=== PATIENT | male | born 1975 | race Caucasian/White ===

== ENCOUNTER 2018-07-02 11:44 | Inpatient (IN) ==
[2018-07-02] MEDS ORDERED: 0.9 % Sodium Chloride 1,000 ML IVC ONE (12:13)
--- NOTE | 2018-07-02 12:15 | Emergency Department Note ---
Disposition Referrals: Jesus Manuel Khan DO [Primary Care Provider] - Forms: ED Satisfaction Letter Extremity Problem HPI - General Chief complaint: ED Extremity Problem,Nontraumatic Stated complaint: Left Great Toe Ulcer Time Seen by Provider: 07/02/18 11:49 Source: patient Mode of arrival: ambulatory Limitations: no limitations Nursing Notes Reviewed: Yes Vital Signs Reviewed: Yes - History of Present Illness HPI Narrative: I have re-performed and reviewed the history documented by the medical student, and I confirm its accuracy except as noted below Pain Scale: 9 - Related Data Home Medications Medication Instructions Recorded Confirmed Atorvastatin Calcium [Lipitor] 20 mg PO HS 06/12/15 02/27/16 Canagliflozin [Invokana] 300 mg PO HS 06/12/15 02/27/16 Duloxetine HCl [Cymbalta] 60 mg PO DAILY 06/12/15 02/27/16 Levomefolate/B6/B12/Algal Oil 1 cap PO BID 06/12/15 02/27/16 [Metanx Capsule] Lisinopril 30 mg PO DAILY 06/12/15 02/27/16 Metformin HCl [Glucophage] 1,000 mg PO BID 06/12/15 02/27/16 Multivitamin [Multi-Day Vitamins] 1 tab PO DAILY 06/12/15 02/27/16 Pioglitazone [Actos] 45 mg PO DAILY 06/12/15 02/27/16 Pregabalin [Lyrica] 150 mg PO DAILY 06/12/15 02/27/16 Saxagliptin HCl [Onglyza] 5 mg PO DAILY 06/12/15 02/27/16 Acetaminophen [Acetaminophen ER] 650 mg PO BID 02/27/16 02/27/16 Dulaglutide [Trulicity] 0.75 mg SQ QWEEK 02/27/16 02/27/16 Guaifenesin [Mucinex] 600 mg PO BID PRN 02/27/16 02/27/16 Melatonin/Pyridoxine HCl (B6) 5 mg PO HS PRN 02/27/16 02/27/16 [Melatonin 5 mg Tablet] Allergies Allergy/AdvReac Type Severity Reaction Status Date / Time liraglutide [From Victoza] Allergy See Verified 02/27/16 09:49 Comments sitagliptin [From Januvia] AdvReac Weakness Verified 04/06/15 10:29 Past Medical History - Past Medical History Medical history: Reports: coronary artery disease, CVA, diabetes, hypertension Surgical history: Reports: other Psychiatric history: Reports: no psych history - Social History Smoking Status: Never smoker Smokeless Tobacco Status: No Alcohol use: Reports: none Drug use: Reports: none Physical Exam - General Limitations: no limitations General appearance: alert, in no apparent distress - Head Head exam: atraumatic, normocephalic, normal inspection - Eye Eye exam: Present: normal appearance, PERRL, EOMI - ENT ENT exam: normal exam, normal oropharynx, mucous membranes moist - Neck Neck exam: Present: normal inspection, full ROM, trachea midline - Chest Chest inspection: Present: normal inspection, symmetric chest wall rise - Respiratory Respiratory exam: Present: normal lung sounds bilaterally - Cardiovascular Cardiovascular exam: Present: normal rhythm, tachycardia, normal heart sounds - Abdominal Exam Abdominal exam: Present: soft, Non-Tender. Absent: tenderness, distention, guarding, rebound, rigidity - Extremities Exam Extremities exam: Present: other (Erythema of the left great toe from tip to metatarsal joint 3 small ulcers near the medial aspect of the tip of the left great toe. medial ulcer approx 3x3mm tracks deep. No active pus drainage from these wounds. No sensation of entire foot (crhonic from diabetic neuropathy)) - Neurological Exam Neurological exam: Present: alert, oriented X3 - Psychiatric Psychiatric exam: Present: normal affect, normal mood - Skin Skin exam: Present: warm, dry Course Course Narrative: Patient was mildly tachycardic. Otherwise, the rest of vitals within normal limits. We will give the patient normal saline bolus. Left great toe concerning for possible osteomyelitis. I spoke with Dr. Canales who has requested CT of the left foot with IV contrast for further assessment. I also ordered basic blood work, CBC, BMP, ESR, CRP. Also ordered vancomycin and Zosyn for coverage of staph, strep and pseudomonas. Patient will need to be admitted for IV antibiotics for the left great toe infection. Vital Signs Temperature 98.7 F 07/02/18 11:51 Pulse Rate 104 07/02/18 11:51 Respiratory Rate 18 07/02/18 11:51 Blood Pressure 126/74 07/02/18 11:51 O2 Sat by Pulse Oximetry 94 07/02/18 11:51 Temperature 98.7 F 07/02/18 11:51 Pulse Rate 104 07/02/18 11:51 Respiratory Rate 18 07/02/18 11:51 Blood Pressure 126/74 07/02/18 11:51 O2 Sat by Pulse Oximetry 94 07/02/18 11:51 Oxygen Delivery Oxygen Delivery Room Air Extremity Problem, Nontraumati - Lab Data Result diagrams: 07/02/18 12:29 07/02/18 12:29 Lab Results 07/02/18 07/02/18 07/02/18 Range/Units 12:29 12:29 12:29 WBC 17.3 H (4.3-11.1) K/mcL RBC 4.76 (4.19-5.50) M/mcL Hgb 13.5 (12.9-16.9) g/dL Hct 41.1 (37.5-50.1) % MCV 86.3 (83.0-100.0) fL MCH 28.4 (28.0-33.3) pg MCHC 32.8 (31.6-35.5) g/dL RDW 14.1 (11.5-14.5) % Plt Count 186 (140-400) K/mcL MPV 9.9 (9.4-12.4) fL Immature Gran % 1.1 (0-4) % Seg Neutrophils % 79.1 % Lymphocytes % 11.5 % Monocytes % 7.2 % Eosinophils % 0.8 % Basophils % 0.3 % Neutrophils # 13.7 H (1.6-8.9) K/mcL Lymphocytes # 2.0 (0.6-4.6) K/mcL Monocytes # 1.3 (0.0-1.3) K/mcL Eosinophils # 0.1 (0.0-0.6) K/mcL Basophils # 0.1 (0.0-0.2) K/mcL ESR (0-10) mm/hr PT 12.6 H (9.4-12.1) Seconds INR 1.1 APTT 31.8 (26.0-36.0) Seconds Sodium 130 L (136-145) mEq/L Potassium 4.4 (3.5-5.1) mEq/L Chloride 94 L (98-107) mEq/L Carbon Dioxide 27 (23-29) mEq/L BUN 26 H (6-20) mg/dL Creatinine 1.40 H (0.70-1.30) mg/dL Est GFR ( Amer) > 60 (> 60) Est GFR (Non-Af Amer) 55 L (> 60) BUN/Creatinine Ratio 19 (6-26) Glucose 314 H (70-105) mg/dL Calculated Osmolality 287 (280-300) Lactic Acid (0.5-2.2) mmol/L Calcium 9.4 (8.6-10.3) mg/dL Phosphorus 2.8 (2.7-4.5) mg/dL Magnesium 2.0 (1.6-2.6) mg/dL 07/02/18 07/02/18 Range/Units 12:29 12:29 WBC (4.3-11.1) K/mcL RBC (4.19-5.50) M/mcL Hgb (12.9-16.9) g/dL Hct (37.5-50.1) % MCV (83.0-100.0) fL MCH (28.0-33.3) pg MCHC (31.6-35.5) g/dL RDW (11.5-14.5) % Plt Count (140-400) K/mcL MPV (9.4-12.4) fL Immature Gran % (0-4) % Seg Neutrophils % % Lymphocytes % % Monocytes % % Eosinophils % % Basophils % % Neutrophils # (1.6-8.9) K/mcL Lymphocytes # (0.6-4.6) K/mcL Monocytes # (0.0-1.3) K/mcL Eosinophils # (0.0-0.6) K/mcL Basophils # (0.0-0.2) K/mcL ESR 85 H (0-10) mm/hr PT (9.4-12.1) Seconds INR APTT (26.0-36.0) Seconds Sodium (136-145) mEq/L Potassium (3.5-5.1) mEq/L Chloride (98-107) mEq/L Carbon Dioxide (23-29) mEq/L BUN (6-20) mg/dL Creatinine (0.70-1.30) mg/dL Est GFR ( Amer) (> 60) Est GFR (Non-Af Amer) (> 60) BUN/Creatinine Ratio (6-26) Glucose (70-105) mg/dL Calculated Osmolality (280-300) Lactic Acid 1.1 (0.5-2.2) mmol/L Calcium (8.6-10.3) mg/dL Phosphorus (2.7-4.5) mg/dL Magnesium (1.6-2.6) mg/dL Attestation Statement - Attestation Attestation: I, Jones Goodrich DO, examined this patient [id number] and my medical decision-making was reviewed with Dr. Robel Dugan, Resident Physician. I agree with the documented findings, disposition and treatment plan as described except to the extent set forth below. I personally supervised and was present for the myers/critical portions of the procedures completed by the resident documented below. Please see my progress notes for details.
[2018-07-02] MEDS ORDERED: Piperacillin/Tazobactam 3.375 GM in 0.9 % Sodium Chloride Mini Bag 100 ML IVPB ONE (12:21)
--- NOTE | 2018-07-02 12:23 | Emergency Department Note ---
Disposition Clinical Impression: Toe infection, MANN (acute kidney injury) Cellulitis, toe Qualifiers: Laterality: left Qualified Code(s): L03.032 - Cellulitis of left toe Disposition: Admitted As Inpatient Condition: Good Referrals: Jesus Manuel Khan DO [Primary Care Provider] - Forms: ED Satisfaction Letter General Adult HPI - General Chief complaint: ED Extremity Problem,Nontraumatic Stated complaint: Left Great Toe Ulcer Time Seen by Provider: 07/02/18 11:49 Source: patient Mode of arrival: ambulatory Limitations: no limitations - History of Present Illness HPI Narrative: Pt is a 42 yo M with a h/o DM with previous diabetic foot ulcers and diabetic neuropathy. Pt c/o a left great to ulcer that has been present for the past month but states that 2 days ago he began having some throbbing in his left leg and left foot. Pt reports that he has had some associated subjective fever, chills and diaphoresis for the past 2 days as well and states that he has gone to [facility] yesterday for the pain in his leg and had a sono done and was told he did not have a DVT and was started on Doxycycline for the ulcer. He reports that he went to Dr. Canales office today and the nurse probed the wound and was told that the wound tracked down to the bone. He says that Dr. Webb's office also did an x-ray of his foot. The pt denies any nausea, vomiting, abd pain, CP, palpitations or any other sx at this time. Pain Scale: 9 - Related Data Home Medications Medication Instructions Recorded Confirmed Atorvastatin Calcium [Lipitor] 20 mg PO HS 06/12/15 02/27/16 Canagliflozin [Invokana] 300 mg PO HS 06/12/15 02/27/16 Duloxetine HCl [Cymbalta] 60 mg PO DAILY 06/12/15 02/27/16 Levomefolate/B6/B12/Algal Oil 1 cap PO BID 06/12/15 02/27/16 [Metanx Capsule] Lisinopril 30 mg PO DAILY 06/12/15 02/27/16 Metformin HCl [Glucophage] 1,000 mg PO BID 06/12/15 02/27/16 Multivitamin [Multi-Day Vitamins] 1 tab PO DAILY 06/12/15 02/27/16 Pioglitazone [Actos] 45 mg PO DAILY 06/12/15 02/27/16 Pregabalin [Lyrica] 150 mg PO DAILY 06/12/15 02/27/16 Saxagliptin HCl [Onglyza] 5 mg PO DAILY 06/12/15 02/27/16 Acetaminophen [Acetaminophen ER] 650 mg PO BID 02/27/16 02/27/16 Dulaglutide [Trulicity] 0.75 mg SQ QWEEK 02/27/16 02/27/16 Guaifenesin [Mucinex] 600 mg PO BID PRN 02/27/16 02/27/16 Melatonin/Pyridoxine HCl (B6) 5 mg PO HS PRN 02/27/16 02/27/16 [Melatonin 5 mg Tablet] Allergies Allergy/AdvReac Type Severity Reaction Status Date / Time liraglutide [From Victoza] Allergy See Verified 02/27/16 09:49 Comments sitagliptin [From Januvia] AdvReac Weakness Verified 04/06/15 10:29 All systems ED: reviewed and negative except as stated. Constitutional: Reports: fever, chills. Denies: weakness Cardiovascular: Denies: chest pain, palpitations Respiratory: Denies: cough, dyspnea Gastrointestinal: Denies: abdominal pain, nausea, vomiting Musculoskeletal: Reports: other (left leg pain) Integumentary: Reports: other (ulcer to the medial left great toe) Hematological/Lymphatic: Denies: easy bleeding, easy bruising Past Medical History - Past Medical History Medical history: Reports: coronary artery disease, CVA, diabetes, hypertension Surgical history: Reports: other Psychiatric history: Reports: no psych history - Social History Smoking Status: Never smoker Smokeless Tobacco Status: No Alcohol use: Reports: none Drug use: Reports: none Physical Exam - General Limitations: no limitations General appearance: alert, in no apparent distress Course Vital Signs Temperature 98.7 F 07/02/18 11:51 Pulse Rate 104 07/02/18 11:51 Respiratory Rate 18 07/02/18 11:51 Blood Pressure 126/74 07/02/18 11:51 O2 Sat by Pulse Oximetry 94 07/02/18 11:51 Temperature 98.7 F 07/02/18 11:51 Pulse Rate 104 07/02/18 11:51 Respiratory Rate 18 07/02/18 11:51 Blood Pressure 126/74 07/02/18 11:51 O2 Sat by Pulse Oximetry 94 07/02/18 11:51 Oxygen Delivery Oxygen Delivery Room Air Medical Decision Making - Lab Data Result diagrams: 07/02/18 12:29 07/02/18 12:29 Lab Results 07/02/18 07/02/18 07/02/18 Range/Units 12:29 12:29 12:29 WBC 17.3 H (4.3-11.1) K/mcL RBC 4.76 (4.19-5.50) M/mcL Hgb 13.5 (12.9-16.9) g/dL Hct 41.1 (37.5-50.1) % MCV 86.3 (83.0-100.0) fL MCH 28.4 (28.0-33.3) pg MCHC 32.8 (31.6-35.5) g/dL RDW 14.1 (11.5-14.5) % Plt Count 186 (140-400) K/mcL MPV 9.9 (9.4-12.4) fL Immature Gran % 1.1 (0-4) % Seg Neutrophils % 79.1 % Lymphocytes % 11.5 % Monocytes % 7.2 % Eosinophils % 0.8 % Basophils % 0.3 % Neutrophils # 13.7 H (1.6-8.9) K/mcL Lymphocytes # 2.0 (0.6-4.6) K/mcL Monocytes # 1.3 (0.0-1.3) K/mcL Eosinophils # 0.1 (0.0-0.6) K/mcL Basophils # 0.1 (0.0-0.2) K/mcL ESR (0-10) mm/hr PT 12.6 H (9.4-12.1) Seconds INR 1.1 APTT 31.8 (26.0-36.0) Seconds Sodium 130 L (136-145) mEq/L Potassium 4.4 (3.5-5.1) mEq/L Chloride 94 L (98-107) mEq/L Carbon Dioxide 27 (23-29) mEq/L BUN 26 H (6-20) mg/dL Creatinine 1.40 H (0.70-1.30) mg/dL Est GFR ( Amer) > 60 (> 60) Est GFR (Non-Af Amer) 55 L (> 60) BUN/Creatinine Ratio 19 (6-26) Glucose 314 H (70-105) mg/dL Calculated Osmolality 287 (280-300) Lactic Acid (0.5-2.2) mmol/L Calcium 9.4 (8.6-10.3) mg/dL Phosphorus 2.8 (2.7-4.5) mg/dL Magnesium 2.0 (1.6-2.6) mg/dL C-Reactive Protein 186 H (Less than 10) mg/L Urine Color (Yellow) Urine Clarity (Clear) Urine pH (5.0-8.0) pH Units Ur Specific [place] (1.010-1.025) Urine Protein (Neg-Trace) mg/dL Urine Glucose (UA) (Normal) mg/dL Urine Ketones (Negative) mg/dL Urine Blood (Negative) Urine Nitrite (Negative) Urine Bilirubin (Negative) Urine Urobilinogen (Normal) mg/dL Ur Leukocyte Esterase (Negative) Ur Culture Indicated? (NO) 07/02/18 07/02/18 07/02/18 Range/Units 12:29 12:29 14:13 WBC (4.3-11.1) K/mcL RBC (4.19-5.50) M/mcL Hgb (12.9-16.9) g/dL Hct (37.5-50.1) % MCV (83.0-100.0) fL MCH (28.0-33.3) pg MCHC (31.6-35.5) g/dL RDW (11.5-14.5) % Plt Count (140-400) K/mcL MPV (9.4-12.4) fL Immature Gran % (0-4) % Seg Neutrophils % % Lymphocytes % % Monocytes % % Eosinophils % % Basophils % % Neutrophils # (1.6-8.9) K/mcL Lymphocytes # (0.6-4.6) K/mcL Monocytes # (0.0-1.3) K/mcL Eosinophils # (0.0-0.6) K/mcL Basophils # (0.0-0.2) K/mcL ESR 85 H (0-10) mm/hr PT (9.4-12.1) Seconds INR APTT (26.0-36.0) Seconds Sodium (136-145) mEq/L Potassium (3.5-5.1) mEq/L Chloride (98-107) mEq/L Carbon Dioxide (23-29) mEq/L BUN (6-20) mg/dL Creatinine (0.70-1.30) mg/dL Est GFR ( Amer) (> 60) Est GFR (Non-Af Amer) (> 60) BUN/Creatinine Ratio (6-26) Glucose (70-105) mg/dL Calculated Osmolality (280-300) Lactic Acid 1.1 (0.5-2.2) mmol/L Calcium (8.6-10.3) mg/dL Phosphorus (2.7-4.5) mg/dL Magnesium (1.6-2.6) mg/dL C-Reactive Protein (Less than 10) mg/L Urine Color Yellow (Yellow) Urine Clarity Clear (Clear) Urine pH 6.0 (5.0-8.0) pH Units Ur Specific [place] > 1.030 H (1.010-1.025) Urine Protein Negative (Neg-Trace) mg/dL Urine Glucose (UA) >=1000 H (Normal) mg/dL Urine Ketones Negative (Negative) mg/dL Urine Blood Negative (Negative) Urine Nitrite Negative (Negative) Urine Bilirubin Negative (Negative) Urine Urobilinogen Normal (Normal) mg/dL Ur Leukocyte Esterase Negative (Negative) Ur Culture Indicated? NO (NO) Attestation Statement - Attestation Attestation: I, Jones Goodrich DO, examined this patient [id number] and my medical decision-making was reviewed with Robel HAMMER 3 I agree with the documen jeffery findings, disposition and treatment plan as described except to the extent set forth below. I personally supervised and was present for the myers/critical portions of the procedures completed by the resident documented below. Please see my progress notes for details.
[2018-07-02] MEDS ORDERED: Isovue-370 500 ML BOTTLE IVP ONE (12:26)
[2018-07-02 12:50] LABS: Basophils # 0.1 K/mcL (0.0-0.2); Basophils % 0.3 %; Eosinophils # 0.1 K/mcL (0.0-0.6); Eosinophils % 0.8 %; Hematocrit 41.1 % (37.5-50.1); Hemoglobin 13.5 g/dL (12.9-16.9); Immature Granulocytes % 1.1 % (0-4); Lymphocytes % 11.5 %; Mean Corpuscular HGB Conc 32.8 g/dL (31.6-35.5); Mean Corpuscular Hemoglobin 28.4 pg (28.0-33.3); Mean Corpuscular Volume 86.3 fL (83.0-100.0); Mean Platelet Volume 9.9 fL (9.4-12.4); Monocytes # 1.3 K/mcL (0.0-1.3); Monocytes % 7.2 %; Neutrophils # 13.7 K/mcL (1.6-8.9); Platelet Count 186 K/mcL (140-400); Red Blood Count 4.76 M/mcL (4.19-5.50); Red Cell Distribution Width 14.1 % (11.5-14.5); Segmented Neutrophils % 79.1 %
--- NOTE | 2018-07-02 12:53 | Emergency Department Note ---
Disposition Clinical Impression: Toe infection, MANN (acute kidney injury) Cellulitis, toe Qualifiers: Laterality: left Qualified Code(s): L03.032 - Cellulitis of left toe Disposition: Admitted As Inpatient Condition: Good Referrals: Jesus Manuel Khan DO [Primary Care Provider] - Forms: ED Satisfaction Letter Time of Disposition: 14:30 General Adult HPI - General Chief complaint: ED Extremity Problem,Nontraumatic Stated complaint: Left Great Toe Ulcer Time Seen by Provider: 07/02/18 11:49 Source: patient Mode of arrival: ambulatory Limitations: no limitations - History of Present Illness Pain Scale: 9 - Related Data Home Medications Medication Instructions Recorded Confirmed Atorvastatin Calcium [Lipitor] 20 mg PO HS 06/12/15 02/27/16 Canagliflozin [Invokana] 300 mg PO HS 06/12/15 02/27/16 Duloxetine HCl [Cymbalta] 60 mg PO DAILY 06/12/15 02/27/16 Levomefolate/B6/B12/Algal Oil 1 cap PO BID 06/12/15 02/27/16 [Metanx Capsule] Lisinopril 30 mg PO DAILY 06/12/15 02/27/16 Metformin HCl [Glucophage] 1,000 mg PO BID 06/12/15 02/27/16 Multivitamin [Multi-Day Vitamins] 1 tab PO DAILY 06/12/15 02/27/16 Pioglitazone [Actos] 45 mg PO DAILY 06/12/15 02/27/16 Pregabalin [Lyrica] 150 mg PO DAILY 06/12/15 02/27/16 Saxagliptin HCl [Onglyza] 5 mg PO DAILY 06/12/15 02/27/16 Acetaminophen [Acetaminophen ER] 650 mg PO BID 02/27/16 02/27/16 Dulaglutide [Trulicity] 0.75 mg SQ QWEEK 02/27/16 02/27/16 Guaifenesin [Mucinex] 600 mg PO BID PRN 02/27/16 02/27/16 Melatonin/Pyridoxine HCl (B6) 5 mg PO HS PRN 02/27/16 02/27/16 [Melatonin 5 mg Tablet] Allergies Allergy/AdvReac Type Severity Reaction Status Date / Time liraglutide [From Victoza] Allergy See Verified 02/27/16 09:49 Comments sitagliptin [From Januvia] AdvReac Weakness Verified 04/06/15 10:29 Constitutional: Reports: fever, chills. Denies: weakness Cardiovascular: Denies: chest pain, palpitations Respiratory: Denies: cough, dyspnea Gastrointestinal: Denies: abdominal pain, nausea, vomiting Musculoskeletal: Reports: other (left leg pain) Integumentary: Reports: other (ulcer to the medial left great toe) Hematological/Lymphatic: Denies: easy bleeding, easy bruising Past Medical History - Past Medical History Medical history: Reports: coronary artery disease, CVA, diabetes, hypertension Surgical history: Reports: other Psychiatric history: Reports: no psych history - Social History Smoking Status: Never smoker Smokeless Tobacco Status: No Alcohol use: Reports: none Drug use: Reports: none Physical Exam - General Limitations: no limitations General appearance: alert, in no apparent distress Course Vital Signs Temperature 98.7 F 07/02/18 11:51 Pulse Rate 104 07/02/18 11:51 Respiratory Rate 18 07/02/18 11:51 Blood Pressure 126/74 07/02/18 11:51 O2 Sat by Pulse Oximetry 94 07/02/18 11:51 Temperature 98.7 F 07/02/18 11:51 Pulse Rate 104 07/02/18 11:51 Respiratory Rate 18 07/02/18 11:51 Blood Pressure 126/74 07/02/18 11:51 O2 Sat by Pulse Oximetry 94 07/02/18 11:51 Oxygen Delivery Oxygen Delivery Room Air Medical Decision Making - Lab Data Result diagrams: 07/02/18 12:29 07/02/18 12:29 Lab Results 07/02/18 07/02/18 07/02/18 Range/Units 12:29 12:29 12:29 WBC 17.3 H (4.3-11.1) K/mcL RBC 4.76 (4.19-5.50) M/mcL Hgb 13.5 (12.9-16.9) g/dL Hct 41.1 (37.5-50.1) % MCV 86.3 (83.0-100.0) fL MCH 28.4 (28.0-33.3) pg MCHC 32.8 (31.6-35.5) g/dL RDW 14.1 (11.5-14.5) % Plt Count 186 (140-400) K/mcL MPV 9.9 (9.4-12.4) fL Immature Gran % 1.1 (0-4) % Seg Neutrophils % 79.1 % Lymphocytes % 11.5 % Monocytes % 7.2 % Eosinophils % 0.8 % Basophils % 0.3 % Neutrophils # 13.7 H (1.6-8.9) K/mcL Lymphocytes # 2.0 (0.6-4.6) K/mcL Monocytes # 1.3 (0.0-1.3) K/mcL Eosinophils # 0.1 (0.0-0.6) K/mcL Basophils # 0.1 (0.0-0.2) K/mcL ESR (0-10) mm/hr PT 12.6 H (9.4-12.1) Seconds INR 1.1 APTT 31.8 (26.0-36.0) Seconds Sodium 130 L (136-145) mEq/L Potassium 4.4 (3.5-5.1) mEq/L Chloride 94 L (98-107) mEq/L Carbon Dioxide 27 (23-29) mEq/L BUN 26 H (6-20) mg/dL Creatinine 1.40 H (0.70-1.30) mg/dL Est GFR ( Amer) > 60 (> 60) Est GFR (Non-Af Amer) 55 L (> 60) BUN/Creatinine Ratio 19 (6-26) Glucose 314 H (70-105) mg/dL Calculated Osmolality 287 (280-300) Lactic Acid (0.5-2.2) mmol/L Calcium 9.4 (8.6-10.3) mg/dL Phosphorus 2.8 (2.7-4.5) mg/dL Magnesium 2.0 (1.6-2.6) mg/dL C-Reactive Protein 186 H (Less than 10) mg/L Urine Color (Yellow) Urine Clarity (Clear) Urine pH (5.0-8.0) pH Units Ur Specific [place] (1.010-1.025) Urine Protein (Neg-Trace) mg/dL Urine Glucose (UA) (Normal) mg/dL Urine Ketones (Negative) mg/dL Urine Blood (Negative) Urine Nitrite (Negative) Urine Bilirubin (Negative) Urine Urobilinogen (Normal) mg/dL Ur Leukocyte Esterase (Negative) Ur Culture Indicated? (NO) 04/07/02/18 07/02/18 Range/Units 12:29 12:29 14:13 WBC (4.3-11.1) K/mcL RBC (4.19-5.50) M/mcL Hgb (12.9-16.9) g/dL Hct (37.5-50.1) % MCV (83.0-100.0) fL MCH (28.0-33.3) pg MCHC (31.6-35.5) g/dL RDW (11.5-14.5) % Plt Count (140-400) K/mcL MPV (9.4-12.4) fL Immature Gran % (0-4) % Seg Neutrophils % % Lymphocytes % % Monocytes % % Eosinophils % % Basophils % % Neutrophils # (1.6-8.9) K/mcL Lymphocytes # (0.6-4.6) K/mcL Monocytes # (0.0-1.3) K/mcL Eosinophils # (0.0-0.6) K/mcL Basophils # (0.0-0.2) K/mcL ESR 85 H (0-10) mm/hr PT (9.4-12.1) Seconds INR APTT (26.0-36.0) Seconds Sodium (136-145) mEq/L Potassium (3.5-5.1) mEq/L Chloride (98-107) mEq/L Carbon Dioxide (23-29) mEq/L BUN (6-20) mg/dL Creatinine (0.70-1.30) mg/dL Est GFR ( Amer) (> 60) Est GFR (Non-Af Amer) (> 60) BUN/Creatinine Ratio (6-26) Glucose (70-105) mg/dL Calculated Osmolality (280-300) Lactic Acid 1.1 (0.5-2.2) mmol/L Calcium (8.6-10.3) mg/dL Phosphorus (2.7-4.5) mg/dL Magnesium (1.6-2.6) mg/dL C-Reactive Protein (Less than 10) mg/L Urine Color Yellow (Yellow) Urine Clarity Clear (Clear) Urine pH 6.0 (5.0-8.0) pH Units Ur Specific [place] > 1.030 H (1.010-1.025) Urine Protein Negative (Neg-Trace) mg/dL Urine Glucose (UA) >=1000 H (Normal) mg/dL Urine Ketones Negative (Negative) mg/dL Urine Blood Negative (Negative) Urine Nitrite Negative (Negative) Urine Bilirubin Negative (Negative) Urine Urobilinogen Normal (Normal) mg/dL Ur Leukocyte Esterase Negative (Negative) Ur Culture Indicated? NO (NO) Attestation Statement - Attestation Attestation: I, Jones Goodrich DO, examined this patient [id number] and my medical decision-making was reviewed with Dr. Robel Dugan, Resident Physician. I agree with the documented findings, disposition and treatment plan as described except to the extent set forth below. I personally supervised and was present for the myers/critical portions of the procedures completed by the resident documented below. Please see my progress notes for details. 42-year-old male presents to the emergency room for evaluation of left elbow and flexion. He was seen in podiatry this morning and they advised him to come to the emergency room for IV antibiotics imaging modalities labs and admission. Patient is been treated for diabetic foot ulcer on the toe the last several weeks to months. He has had some fevers and chills as well as significant pain in left lower extremity that is all new. He denies any chest pain or shortness of breath. No nausea vomiting or diarrhea. No headache or vision change. He has not reinjured the foot or had any other particular surgical intervention on that extremity. On my physical exam the patient is resting in the bed. He does appear to be mildly uncomfortable at this time. Patient's lungs are clear heart is regular. He does have slight tachycardia on presentation. Abdomen is soft nontender nondistended with no guarding no rigidity. Right lower extremity is unaffected. He does have several areas of skin deterioration over the toes in the right hip otherwise no deep ulcers or involvement. Left great toe has ulcer noted with bony of visualization. Patient has redness. He also has discomfort to the foot in the calf. There is warmth noted to the area but no specific cellulitic-like presentation. Pulses in the DP and PT distribution are symmetrical. Patient will have labs and imaging completed at the request of the on-call brake engineer Dr. Canales. He will then be admitted once the workup is established. Patient is otherwise clinically stable. See detailed documentation the physical exam, medical intervention, medical decision-making and disposition in the resident physician's note. No critical care applied the patient's treatment course at this time. 1400 Patient found to have elevated white blood cell count but otherwise no other acute signs of profound systemic infection. Patient does meet sepsis criteria but does not show any signs of septic shock. Patient will be admitted for monitoring. Hospitalist Dr. Bassett reviewed the case and no other questions or concerns. Consultation for podiatry his artery been placed. Patient will be monitored here in the emergency department until the admission process has been completed.
[2018-07-02 12:55] LABS: INR 1.1; Prothrombin Time 12.6 Seconds (9.4-12.1)
[2018-07-02 12:57] LABS: Activated Partial Thrombo Time 31.8 Seconds (26.0-36.0)
[2018-07-02 13:01] LABS: BUN/Creatinine Ratio 19 (6-26); Blood Urea Nitrogen 26 mg/dL (6-20); Carbon Dioxide 27 mEq/L (23-29); Chloride 94 mEq/L (98-107); Glucose 314 mg/dL (70-105); Potassium 4.4 mEq/L (3.5-5.1); Sodium 130 mEq/L (136-145); eGFR For Non-African Americans 55 (> 60)
[2018-07-02 13:02] LABS: Calcium 9.4 mg/dL (8.6-10.3); Osmolality,Calculated 287 (280-300); Phosphorous 2.8 mg/dL (2.7-4.5)
[2018-07-02] MEDS ORDERED: *HR* FentaNYL (PF) 100 MCG/2 ML VIAL IVP ONE (14:08)
--- NOTE | 2018-07-02 14:10 | Emergency Department Note ---
Disposition Clinical Impression: Toe infection, MANN (acute kidney injury) Cellulitis, toe Qualifiers: Laterality: left Qualified Code(s): L03.032 - Cellulitis of left toe Disposition: Admitted As Inpatient Condition: Good Referrals: Jesus Manuel Khan DO [Primary Care Provider] - Forms: ED Satisfaction Letter Time of Disposition: 14:41 Extremity Problem HPI - General Chief complaint: ED Extremity Problem,Nontraumatic Stated complaint: Left Great Toe Ulcer Time Seen by Provider: 07/02/18 11:49 Source: patient Mode of arrival: ambulatory Limitations: no limitations Nursing Notes Reviewed: Yes Vital Signs Reviewed: Yes - History of Present Illness HPI Narrative: I have re-performed and reviewed the history documented by the medical student, and I confirm its accuracy except as noted below Pain Scale: 9 - Related Data Home Medications Medication Instructions Recorded Confirmed Atorvastatin Calcium [Lipitor] 20 mg PO HS 06/12/15 02/27/16 Canagliflozin [Invokana] 300 mg PO HS 06/12/15 02/27/16 Duloxetine HCl [Cymbalta] 60 mg PO DAILY 06/12/15 02/27/16 Levomefolate/B6/B12/Algal Oil 1 cap PO BID 06/12/15 02/27/16 [Metanx Capsule] Lisinopril 30 mg PO DAILY 06/12/15 02/27/16 Metformin HCl [Glucophage] 1,000 mg PO BID 06/12/15 02/27/16 Multivitamin [Multi-Day Vitamins] 1 tab PO DAILY 06/12/15 02/27/16 Pioglitazone [Actos] 45 mg PO DAILY 06/12/15 02/27/16 Pregabalin [Lyrica] 150 mg PO DAILY 06/12/15 02/27/16 Saxagliptin HCl [Onglyza] 5 mg PO DAILY 06/12/15 02/27/16 Acetaminophen [Acetaminophen ER] 650 mg PO BID 02/27/16 02/27/16 Dulaglutide [Trulicity] 0.75 mg SQ QWEEK 02/27/16 02/27/16 Guaifenesin [Mucinex] 600 mg PO BID PRN 02/27/16 02/27/16 Melatonin/Pyridoxine HCl (B6) 5 mg PO HS PRN 02/27/16 02/27/16 [Melatonin 5 mg Tablet] Allergies Allergy/AdvReac Type Severity Reaction Status Date / Time liraglutide [From Victoza] Allergy See Verified 02/27/16 09:49 Comments sitagliptin [From Januvia] AdvReac Weakness Verified 04/06/15 10:29 Constitutional: Reports: fever, chills. Denies: weakness Cardiovascular: Denies: chest pain, palpitations Respiratory: Denies: cough, dyspnea Gastrointestinal: Denies: abdominal pain, nausea, vomiting Musculoskeletal: Reports: other (left leg pain) Integumentary: Reports: other (ulcer to the medial left great toe) Hematological/Lymphatic: Denies: easy bleeding, easy bruising Past Medical History - Past Medical History Attestation: Yes The following information was validated with the patient. Source: patient Medical history: Reports: coronary artery disease, CVA, diabetes, hypertension Surgical history: Reports: other Psychiatric history: Reports: no psych history - Social History Smoking Status: Never smoker Smokeless Tobacco Status: No Alcohol use: Reports: none Drug use: Reports: none Physical Exam - General Limitations: no limitations General appearance: alert, in no apparent distress - Head Head exam: atraumatic, normocephalic, normal inspection - Eye Eye exam: Present: normal appearance, PERRL, EOMI - ENT ENT exam: normal exam, normal oropharynx, mucous membranes moist - Neck Neck exam: Present: normal inspection, full ROM, trachea midline - Chest Chest inspection: Present: normal inspection, symmetric chest wall rise - Respiratory Respiratory exam: Present: normal lung sounds bilaterally - Cardiovascular Cardiovascular exam: Present: normal rhythm, tachycardia, normal heart sounds - Abdominal Exam Abdominal exam: Present: soft, Non-Tender. Absent: tenderness, distention, guarding, rebound, rigidity - Extremities Exam Extremities exam: Present: other (Left great toe erythema, 3 small ulcers all less than 5 mm in diameter. No pus drainage. No sensation of entire left foot that is chronic for diabetic neuropathy. No bleeding. ) - Neurological Exam Neurological exam: Present: alert, oriented X3 - Psychiatric Psychiatric exam: Present: normal affect, normal mood - Skin Skin exam: Present: warm, dry, intact Course Course Narrative: Patient was tachycardic on presentation. Otherwise, the rest of vitals within normal limits. Physical exam shows concern for cellulitis of the left great toe. I talked with but I just Dr. King. He requested CT of the left foot with IV contrast for further assessment of nausea or abscess. Basic labs obtained. He has a white blood cell count elevation, elevated ESR. He also has signs of acute kidney injury. Patient is given fluids. He is also started on vancomycin and Zosyn empirically to cover staph and strep, Pseudomonas. Patient's blood pressure is within normal limits. Does not meet septic shock at this time. Foot CT shows signs of cellulitis but no signs of osteomyelitis. Patient was accepted for admission by hospitalist and consult to podiatry has been placed. Foot CT 07/02/18 12:26 IMPRESSION: 1. Soft tissue edema and skin thickening of the great toe most compatible with cellulitis. There also small amount of subcutaneous gas extending to and medial wound. Findings compatible with soft tissue infection. No organized drainable fluid collection identified. 2. No CT evidence for osteomyelitis. D/ / Misael Walker MD / Misael Walker MD Interpreting Provider: Misael Walker MD Vital Signs Temperature 98.7 F 07/02/18 11:51 Pulse Rate 104 07/02/18 11:51 Respiratory Rate 18 07/02/18 11:51 Blood Pressure 126/74 07/02/18 11:51 O2 Sat by Pulse Oximetry 94 07/02/18 11:51 Temperature 98.7 F 07/02/18 11:51 Pulse Rate 104 07/02/18 11:51 Respiratory Rate 18 07/02/18 11:51 Blood Pressure 126/74 07/02/18 11:51 O2 Sat by Pulse Oximetry 94 07/02/18 11:51 Oxygen Delivery Oxygen Delivery Room Air Extremity Problem, [facility] Narrative Medical decision making narrative: Patient was tachycardic on presentation. Otherwise, the rest of vitals within normal limits. Physical exam shows concern for cellulitis of the left great toe. I talked with but I just Dr. King. He requested CT of the left foot with IV contrast for further assessment of nausea or abscess. Basic labs obtained. He has a white blood cell count elevation, elevated ESR. He also has signs of acute kidney injury. Patient is given fluids. He is also started on vancomycin and Zosyn empirically to cover staph and strep, Pseudomonas. Patient's blood pressure is within normal limits. Does not meet septic shock at this time. Foot CT shows signs of cellulitis but no signs of osteomyelitis. Patient was accepted for admission by hospitalist and consult to podiatry has been placed. - Medical Records Medical records reviewed: Yes I reviewed the patient's medical records. - Lab Data Lab results reviewed: Yes I reviewed the patient's lab results. Result diagrams: 07/02/18 12:29 07/02/18 12:29 Lab Results 07/02/18 07/02/18 07/02/18 Range/Units 12:29 12:29 12:29 WBC 17.3 H (4.3-11.1) K/mcL RBC 4.76 (4.19-5.50) M/mcL Hgb 13.5 (12.9-16.9) g/dL Hct 41.1 (37.5-50.1) % MCV 86.3 (83.0-100.0) fL MCH 28.4 (28.0-33.3) pg MCHC 32.8 (31.6-35.5) g/dL RDW 14.1 (11.5-14.5) % Plt Count 186 (140-400) K/mcL MPV 9.9 (9.4-12.4) fL Immature Gran % 1.1 (0-4) % Seg Neutrophils % 79.1 % Lymphocytes % 11.5 % Monocytes % 7.2 % Eosinophils % 0.8 % Basophils % 0.3 % Neutrophils # 13.7 H (1.6-8.9) K/mcL Lymphocytes # 2.0 (0.6-4.6) K/mcL Monocytes # 1.3 (0.0-1.3) K/mcL Eosinophils # 0.1 (0.0-0.6) K/mcL Basophils # 0.1 (0.0-0.2) K/mcL ESR (0-10) mm/hr PT 12.6 H (9.4-12.1) Seconds INR 1.1 APTT 31.8 (26.0-36.0) Seconds Sodium 130 L (136-145) mEq/L Potassium 4.4 (3.5-5.1) mEq/L Chloride 94 L (98-107) mEq/L Carbon Dioxide 27 (23-29) mEq/L BUN 26 H (6-20) mg/dL Creatinine 1.40 H (0.70-1.30) mg/dL Est GFR ( Amer) > 60 (> 60) Est GFR (Non-Af Amer) 55 L (> 60) BUN/Creatinine Ratio 19 (6-26) Glucose 314 H (70-105) mg/dL Calculated Osmolality 287 (280-300) Lactic Acid (0.5-2.2) mmol/L Calcium 9.4 (8.6-10.3) mg/dL Phosphorus 2.8 (2.7-4.5) mg/dL Magnesium 2.0 (1.6-2.6) mg/dL C-Reactive Protein 186 H (Less than 10) mg/L Urine Color (Yellow) Urine Clarity (Clear) Urine pH (5.0-8.0) pH Units Ur Specific [place] (1.010-1.025) Urine Protein (Neg-Trace) mg/dL Urine Glucose (UA) (Normal) mg/dL Urine Ketones (Negative) mg/dL Urine Blood (Negative) Urine Nitrite (Negative) Urine Bilirubin (Negative) Urine Urobilinogen (Normal) mg/dL Ur Leukocyte Esterase (Negative) Ur Culture Indicated? (NO) 07/02/18 07/02/18 07/02/18 Range/Units 12:29 12:29 14:13 WBC (4.3-11.1) K/mcL RBC (4.19-5.50) M/mcL Hgb (12.9-16.9) g/dL Hct (37.5-50.1) % MCV (83.0-100.0) fL MCH (28.0-33.3) pg MCHC (31.6-35.5) g/dL RDW (11.5-14.5) % Plt Count (140-400) K/mcL MPV (9.4-12.4) fL Immature Gran % (0-4) % Seg Neutrophils % % Lymphocytes % % Monocytes % % Eosinophils % % Basophils % % Neutrophils # (1.6-8.9) K/mcL Lymphocytes # (0.6-4.6) K/mcL Monocytes # (0.0-1.3) K/mcL Eosinophils # (0.0-0.6) K/mcL Basophils # (0.0-0.2) K/mcL ESR 85 H (0-10) mm/hr PT (9.4-12.1) Seconds INR APTT (26.0-36.0) Seconds Sodium (136-145) mEq/L Potassium (3.5-5.1) mEq/L Chloride (98-107) mEq/L Carbon Dioxide (23-29) mEq/L BUN (6-20) mg/dL Creatinine (0.70-1.30) mg/dL Est GFR ( Amer) (> 60) Est GFR (Non-Af Amer) (> 60) BUN/Creatinine Ratio (6-26) Glucose (70-105) mg/dL Calculated Osmolality (280-300) Lactic Acid 1.1 (0.5-2.2) mmol/L Calcium (8.6-10.3) mg/dL Phosphorus (2.7-4.5) mg/dL Magnesium (1.6-2.6) mg/dL C-Reactive Protein (Less than 10) mg/L Urine Color Yellow (Yellow) Urine Clarity Clear (Clear) Urine pH 6.0 (5.0-8.0) pH Units Ur Specific [place] > 1.030 H (1.010-1.025) Urine Protein Negative (Neg-Trace) mg/dL Urine Glucose (UA) >=1000 H (Normal) mg/dL Urine Ketones Negative (Negative) mg/dL Urine Blood Negative (Negative) Urine Nitrite Negative (Negative) Urine Bilirubin Negative (Negative) Urine Urobilinogen Normal (Normal) mg/dL Ur Leukocyte Esterase Negative (Negative) Ur Culture Indicated? NO (NO) - Radiology Data Radiology results reviewed: Yes I reviewed the patient's radiology results. Foot CT 07/02/18 12:26 IMPRESSION: 1. Soft tissue edema and skin thickening of the great toe most compatible with cellulitis. There also small amount of subcutaneous gas extending to and medial wound. Findings compatible with soft tissue infection. No organized drainable fluid collection identified. 2. No CT evidence for osteomyelitis. D/ / Misael Walker MD / Misael Walker MD Interpreting Provider: Misael Walker MD S.B.A.R. - S.B.A.R. Situation: Demographics, MOA Background: Presenting Complaint, Relevant PMH, Meds, & Allergies Assessment: Vital Signs, Course and respsone to treatment, Exam Concerns, Patient/Family Expectation, Pertinant Lab Results Recommendation: Barrier(s) to disposition, Recommendation based on pending studies, treatments, or consults S.B.A.R. Report Given to: Dr. Martin Attestation Statement - Attestation Attestation: I, Jones Goodrich DO, examined this patient [id number] and my medical decision-making was reviewed with Dr. Robel Dugan, Resident Physician. I agree with the documented findings, disposition and treatment plan as described except to the extent set forth below. I personally supervised and was present for the myers/critical portions of the procedures completed by the resident documented below. Please see my progress notes for details.
[2018-07-02 14:11] LABS: C-Reactive Protein 186 mg/L (Less than 10)
[2018-07-02 14:24] LABS: Bilirubin,Urine Negative (Negative); Blood,Urine Negative (Negative); Clarity,Urine Clear (Clear); Color,Urine Yellow (Yellow); Glucose,Urine (UA) >=1000 mg/dL (Normal); Ketones,Urine Negative (Negative); Leukocyte Esterase,Urine Negative (Negative); Nitrite,Urine Negative (Negative); Protein,Urine Negative (Neg-Trace); Specific Gravity,Urine > 1.030 (1.010-1.025); Urobilinogen,Urine Normal (Normal)
--- NOTE | 2018-07-02 16:23 | Podiatry Consult Note ---
Date of Encounter: 07/02/18 Time of Encounter: 16:00 Assessment and Plan (1) Toe ulcer due to DM Current visit: No Status: Acute ASSESSMENT: [place] stage II ulceration to toe #1 left with probe to bone. PLAN: WBC 17, ESR 85 [address] CRP [address] obtained and reviewed and shows possible gas to distal aspect of toe #1 (sub q gas vs free air) Will obtain plain film xray imaging and vascular studies to further determine plan for patient - xray imagining to determine presence of gas vs free air Contacted reading radiologist of the CT scan and he confirms that noted gas on the CT scan is only limited to the toe and is not noted to extend to any other areas of the foot or leg. Will likely go for I&D of left great toe tomorrow with Discussed plan with patient and family Cleansed with saline, painted with betadine, 4x4 and kerlix applied. Admit for antibiotic coverage and pain management NPO after midnight. Qualifiers: Diabetes mellitus type: type 2 Laterality: left Non-pressure ulcer stage: with fat layer exposed Qualified Code(s): E11.621 - Type 2 diabetes mellitus with foot ulcer; L97.522 - Non-pressure chronic ulcer of other part of left foot with fat layer exposed (2) Cellulitis, toe Current visit: Yes Status: Acute Patient currently on vanc and zosyn- Continue antibiotics Wound cultures were obtained in office Blood cultures are pending. Qualifiers: Laterality: left Qualified Code(s): L03.032 - Cellulitis of left toe History of Present Illness HPI: Patient is alert and oriented presented to podiatry office with . Patient was seen and evaluated in office per PRISCILA Joy. After assessment of wound with noted probe to bone was found with subjective fevers and chills and pain to posterior aspect of foot and leg patient was advised to go to the ED. Patient presented today to ED with complaints of pain left lower extremity and swelling and redness to left great toe. Patient is a patient of Dr. Canales and is being treated for a chronic ulcer left toe with fat layer exposed. At his last appointment he was given a CAM boot to off load with ambulation and given supplies for alginate dressing changes daily. Patient and his report they have been completing the dressing changes and he admits that he occasionally will walk around the house without the CAM boot. They both state the toe looked as if it were healing until today. He reports the pain in his left lower leg started 2 days ago. He denies any falls or injury. He describes the pain as a throbbing pain starting from his knee and radiating down. The pain is constant and he rates it as a 9. He was evaluated yesterday at [facility] ER and dx with left leg pain and diabetic ulcer left great toe. He was started on Doxycycline 100 mg BID. Records were obtained and reviewed. WBC 15.8. Negative DVT study. Patient does report fever, unknown how high, chills, nausea, diarrhea, and fatigue. A1c 6.8 on 12/29/2017. Patient was admitted for IV administration and management of ulceration and cellulitis of left great toe. Past Med Surg Social Fam HX - Past Medical History Medical history: coronary artery disease, CVA, diabetes, hypertension Psychiatric history: no psych history - Past Surgical History Surgical History: other Additional surgical history: laser vision stim implant, spinal stimulator - Social History Smoking Status: Never smoker Smokeless Tobacco Status: No Alcohol use: none Drug use: none - Family History Father Family Member Ethnicity: Non- Living Status: Hx Family Cardiac Disorders: Yes Hx Family Respiratory Disorders: No Hx Family Cancer: Yes Hx Family GI Disorders: No Hx Family Endocrine Disorder: Yes Hx Family Neuromuscular Disorders: No Hx Family Neurologic Disorders: No Hx Family HEENT Disorders: No Hx Family Autoimmune Disorders: Yes Brother Living Status: Still Living Hx Family Medical Disorders: Yes (Clotting disorder) Medications and Allergies Atorvastatin Calcium [Lipitor] 20 mg PO HS 06/12/15 [History] Canagliflozin [Invokana] 300 mg PO DAILY 06/12/15 [History] Duloxetine HCl [Cymbalta] 60 mg PO DAILY 06/12/15 [History] Levomefolate/B6/B12/Algal Oil [Metanx Capsule] 1 cap PO BID 06/12/15 [History] Metformin HCl [Glucophage] 1,000 mg PO BID 06/12/15 [History] Pioglitazone [Actos] 45 mg PO DAILY 06/12/15 [History] Pregabalin [Lyrica] 150 mg PO TID 06/12/15 [History] RX: Lisinopril 40 mg PO DAILY 06/12/15 [History] Saxagliptin HCl [Onglyza] 5 mg PO DAILY 06/12/15 [History] Acetaminophen [Acetaminophen ER] 650 mg PO BID 02/27/16 [History] Dulaglutide [Trulicity] 1.5 mg SQ QWEEK 02/27/16 [History] Glimepiride [Amaryl] 4 mg PO DAILY 07/02/18 [History] RX: Doxycycline 100 mg PO BID 07/02/18 [History] traZODone [TraZODone] 50 mg PO HS PRN 07/02/18 [History] Allergy/AdvReac Type Severity Reaction Status Date / Time liraglutide [From Victoza] Allergy See Verified 02/27/16 09:49 Comments sitagliptin [From Januvia] AdvReac Weakness Verified 04/06/15 10:29 All Systems Reviewed: as per HPI Physical Exam - Constitutional Vitals: Temp Pulse Resp BP Pulse Ox 98.7 F 104 18 126/74 94 07/02/18 11:51 07/02/18 11:51 07/02/18 11:51 07/02/18 11:51 07/02/18 11:51 Exam: General Examination: CONSTITUTIONAL: Alert, oriented, in no acute distress, non-toxic. EXTREMITIES: CFT 3 seconds all toes. Edema +1 and pedal pulses palpable.there is noted pallor to distal/lateral aspect of left great toe. SKIN: Skin with decreased turgor, decreased subcutaneous tissue, skin thin and shiny with trophic changes associated with comorbidities as described in history.. NEUROLOGIC: profound diminished sensation to light and moderate touch of BLE related to known neuropathic changes ULCERATION: There is a noted ulceration to the medial distal aspect of the left great toe measuring 0.2cmx0.2cmx0.7cm which probes to the distal phalanx- there is no purulent drainage noted at this time however per podiatry office drainage was released after debridement of wound. There is slight darkening of the skin to the periwound which is concerning for tissue . Very minimally noted. There is a second ulceration noted to the plantar/ medial aspect of the left great toe measuring 0.2cmx0.2cmx0.2cm- this wound appears limited to breakdown of skin- probed wound to determine if wounds were connected however was unable to find connecting line. There is no drainage to wound to plantar aspect of toe. There is a 3rd lesion to the plantar aspect of the toe measuring 0.2cmx0.2cmx0.1cm and is limited to breakdown of the skin. No drainage. There is edema, erythema and warmth to entire left great toe. The erythema has been marked for monitoring. There is no extension of erythema past the MTP joint line at this time. There is no noted ascending cellulitis. There are no areas of induration or fluctuance noted at this time. There is no odor. Results - Labs Result Diagrams: 07/02/18 12:29 07/02/18 12:29 Labs: Abnormal lab results WBC 17.3 K/mcL (4.3-11.1) H 07/02/18 12:29 Neutrophils # 13.7 K/mcL (1.6-8.9) H 07/02/18 12:29 ESR 85 mm/hr (0-10) H 07/02/18 12:29 PT 12.6 Seconds (9.4-12.1) H 07/02/18 12:29 Sodium 130 mEq/L (136-145) L 07/02/18 12:29 Chloride 94 mEq/L (98-107) L 07/02/18 12:29 BUN 26 mg/dL (6-20) H 07/02/18 12:29 Creatinine 1.40 mg/dL (0.70-1.30) H 07/02/18 12:29 Est GFR (Non-Af Amer) 55 (> 60) L 07/02/18 12:29 Glucose 314 mg/dL (70-105) H 07/02/18 12:29 C-Reactive Protein 186 mg/L (Less than 10) H 07/02/18 12:29 Ur Specific [place] > 1.030 (1.010-1.025) H 07/02/18 14:13 Urine Glucose (UA) >=1000 mg/dL (Normal) H 07/02/18 14:13 H & H 07/02/18 Range/Units 12:29 Hgb 13.5 (12.9-16.9) g/dL Hct 41.1 (37.5-50.1) % All other labs normal. Consult Discharge Plan - Plan Referrals: Jesus Manuel Khan DO [Primary Care Provider] -
--- NOTE | 2018-07-02 17:50 | Electrocardiograph Report ---
[facility] Test Date: 2018-07-02 Pat Name: Geoff Richey Department: EXAM10 Room: 3A48 Gender: M Phlebotomy Lab Assistant: : [id number] Requested By: Robel Dugan Order Number: [id number] Reading MD: Manuel Lundy Measurements Intervals [place] Rate: 101 P: 52 CA: 191 QRS: -26 QRSD: 87 T: 48 QT: 344 QTc: 446 Interpretive Statements Sinus tachycardia Borderline left axis deviation Low voltage, precordial leads Abnormal R-wave progression, late transition ST elev, probable normal early repol pattern POOR R WAVE PROGRESSION Electronically Signed On 07-02-2018 17:48:27 EDT by Manuel Lundy
[2018-07-02] MEDS ORDERED: traZODone 50 MG TABLET PO PRN (19:09)
[2018-07-02] MEDS ORDERED: Naloxone 0.4 MG/ML INJ IVP PRN (19:13)
[2018-07-02] MEDS ORDERED: Dextrose Gel 15 GM/37.5 ML TUBE PO PRN ×2 (19:19)
[2018-07-02] MEDS ORDERED: D5% in Water 1,000 ML IVC PRN (19:19)
[2018-07-02] MEDS ORDERED: *HR* Dextrose 50 % in Water (Syg) 50 ML SYRINGE IVP PRN (19:19)
[2018-07-02] MEDS: Pregabalin 75 MG CAPSULE PO SCH (20:50)
[2018-07-02] MEDS ORDERED: Insulin DETEMIR 100 UNIT/ML X5UNITS SQ SCH (21:00)
[2018-07-02] MEDS ORDERED: *HR* OxyCODONE Immed Rel 5 MG TABLET PO ONE (21:43)
--- NOTE | 2018-07-02 22:05 | Internal Med History&Physical ---
Date of Encounter: 07/02/18 Time of Encounter: 19:00 Internal Medicine - H&P: HPI Chief complaint: DIABETIC ULCER OF LEFT GREAT TOE. Admitted From: Home Plans for Post Hospital Care: Home History of present illness: The patient is a 42-year-old male, who has had long-standing type 2 diabetes mellitus. He has been fighting with diabetic ulcer located at the dorsal portion of left great toe for about 1 month. Developed severe pain in that area in the last few days. Together with some swelling and purplish discoloration of the left great toe. There is no areas of drainage from that digit. He was seen by Dr. Canales, podiatry today. It was decided that he would come to the hospital for debridement and IV antibiotic treatment. PAST MEDICAL HX: He has had long-standing type 2 diabetes mellitus treated with multiple hypoglycemics (injections and tablets). He is also treated for hyperlipidemia. PAST FAMILY HX: See below PAST SOCIAL HX: He has never used tobacco. Denies alcohol and illicit drugs use. REVIEW OF SYSTEMS: All 14 organ systems were reviewed by me with the patient. Positive and pertinent negative findings are listed above. The rest of organ systems is negative. PHYSICAL EXAM: Skin: Free of rash and discoloration. There is a medium size ulcer located at the dorsal portion of left great toe. There is no discharge from the digit. The toe is purplish in color; swollen. Eyes: Sclera is white. There is no discharge from eyes. ENMT: Oral/pharyngeal mucosa is normal in appearance. There is no discharge from nose or ears. Respiratory: Normal breath sounds with no crackles and wheezes bilaterally. CV: Heart is regular with no gallop or murmur. GI: Abdomen is flat and soft with no palpable mass or visceromegaly. : There is no tenderness in patient's flanks bilaterally. Neuro exam: He has good strength in upper and lower extremities. He has normal eye movements. Psychiatric: He has normal affect. His thought process is appropriate to the situation. ADDITIONAL DATA: CT of left foot shows soft tissue edema and skin thickening of the great toe, most compatible with cellulitis. There is also a small amount of subcutaneous gas extending to medial wound. Findings are compatible with soft tissue infection. There is no organized drainable fluid collection identified. There is no CT evidence for osteomyelitis. CBC shows hemoglobin of 13.5 with WBC of 17.3 thousand. He has normal platelet count. BMP shows creatinine of 1.40 (GFR of 55). With normal electrolytes. With a glucose of 314. UA shows over 1000 of urine glucose. The rest is normal. A/P: Toe ulcer due to diabetes mellitus of type II. With cellulitis of left great toe. See notes from podiatry. I will continue IV vancomycin and IV Zosyn. He will get when necessary Roxicodone. To continue Cymbalta and Lyrica. The patient will likely have debridement tomorrow morning. Hyperlipidemia. We will continue statin. Past Med Surg Social Fam HX - Past Medical History Medical history: coronary artery disease, CVA, diabetes, hypertension Psychiatric history: no psych history - Past Surgical History Surgical History: other Additional surgical history: laser vision stim implant, spinal stimulator - Social History Smoking Status: Never smoker Smokeless Tobacco Status: No Alcohol use: none Drug use: none - Family History Father Family Member Ethnicity: Non- Living Status: Cause of : Cancer Hx Family Cardiac Disorders: Yes Hx Family Respiratory Disorders: No Hx Family Cancer: Yes (Colon, prostate) Hx Family GI Disorders: No Hx Family Endocrine Disorder: Yes Hx Family Neuromuscular Disorders: No Hx Family Neurologic Disorders: No Hx Family HEENT Disorders: No Hx Family Autoimmune Disorders: Yes Hx Family Medical Disorders: Yes (Clotting Disorder) Brother Living Status: Still Living Hx Family Medical Disorders: Yes (Clotting disorder) Internal Medicine - H&P: Meds Atorvastatin Calcium [Lipitor] 20 mg PO HS 06/12/15 [History] Canagliflozin [Invokana] 300 mg PO DAILY 06/12/15 [History] Duloxetine HCl [Cymbalta] 60 mg PO DAILY 06/12/15 [History] Levomefolate/B6/B12/Algal Oil [Metanx Capsule] 1 cap PO BID 06/12/15 [History] Lisinopril 40 mg PO DAILY 06/12/15 [History] Metformin HCl [Glucophage] 1,000 mg PO BID 06/12/15 [History] Pioglitazone [Actos] 45 mg PO DAILY 06/12/15 [History] Pregabalin [Lyrica] 150 mg PO TID 06/12/15 [History] Saxagliptin HCl [Onglyza] 5 mg PO DAILY 06/12/15 [History] Acetaminophen [Acetaminophen ER] 650 mg PO BID 02/27/16 [History] Dulaglutide [Trulicity] 1.5 mg SQ QWEEK 02/27/16 [History] Doxycycline 100 mg PO BID 07/02/18 [History] Glimepiride [Amaryl] 4 mg PO DAILY 07/02/18 [History] traZODone [TraZODone] 50 mg PO HS PRN 07/02/18 [History] Allergy/AdvReac Type Severity Reaction Status Date / Time liraglutide [From Victoza] Allergy See Verified 02/27/16 09:49 Comments sitagliptin [From Januvia] AdvReac Weakness Verified 04/06/15 10:29 - Constitutional Vitals: Temp Pulse Resp BP Pulse Ox 98.3 F 83 16 134/72 96 07/02/18 18:43 07/02/18 18:43 07/02/18 18:43 07/02/18 18:43 07/02/18 18:43 General appearance: Present: A&O X 3, no acute distress, answers questions appropriately Exam: xx Internal Med - H&P Results - Labs CBC & Chem 7: 07/02/18 12:29 07/02/18 12:29 Labs: Short CBC 07/02/18 Range/Units 12:29 WBC 17.3 H (4.3-11.1) K/mcL Hgb 13.5 (12.9-16.9) g/dL Hct 41.1 (37.5-50.1) % Plt Count 186 (140-400) K/mcL Neutrophils # 13.7 H (1.6-8.9) K/mcL BMP 07/02/18 12:29 Sodium 130 L Potassium 4.4 Chloride 94 L Carbon Dioxide 27 BUN 26 H Creatinine 1.40 H Glucose 314 H Calcium 9.4 Urine 07/02/18 Range/Units 14:13 Urine Color Yellow (Yellow) Urine Clarity Clear (Clear) Urine pH 6.0 (5.0-8.0) pH Units Ur Specific [place] > 1.030 H (1.010-1.025) Urine Protein Negative (Neg-Trace) mg/dL Urine Glucose (UA) >=1000 H (Normal) mg/dL - Impressions ITS Impressions Foot CT 07/02/18 12:26 IMPRESSION: 1. Soft tissue edema and skin thickening of the great toe most compatible with cellulitis. There also small amount of subcutaneous gas extending to and medial wound. Findings compatible with soft tissue infection. No organized drainable fluid collection identified. 2. No CT evidence for osteomyelitis. D/ / Misael Walker MD / Misael Walker MD Interpreting Provider: Misael Walker MD Foot X-Ray 07/02/18 16:26 IMPRESSION: Great toe soft tissue swelling with plantar surface ulceration. No soft tissue gas or bone destruction to suggest osteomyelitis. If there is ongoing concern for osteomyelitis recommend MRI with contrast. D/ / Reinier Suarez / Reinier Suarez Interpreting Provider: Reinier Suarez - Assessment and Plan (1) Toe ulcer due to DM Current Visit: No Status: Acute Qualifiers: Diabetes mellitus type: type 2 Laterality: left Non-pressure ulcer stage: with fat layer exposed Qualified Code(s): E11.621 - Type 2 diabetes mellitus with foot ulcer; L97.522 - Non-pressure chronic ulcer of other part of left foot with fat layer exposed (2) Cellulitis, toe Current Visit: Yes Status: Acute Qualifiers: Laterality: left Qualified Code(s): L03.032 - Cellulitis of left toe (3) HLD (hyperlipidemia) Current Visit: Yes Status: Acute Qualifiers: Hyperlipidemia type: unspecified Qualified Code(s): E78.5 - Hyperlipidemia, unspecified - Time Spent With Patient Total time spent is greater than 50% in coordination of care (as documented) at patient's floor/unit and/or counseling patient: 25 - 35 minutes
[2018-07-02] MEDS ORDERED: *HR* OxyCODONE Immed Rel 5 MG TABLET PO PRN (23:15)
[2018-07-03] MEDS: Piperacillin/Tazobactam 3.375 GM in 0.9 % Sodium Chloride Mini Bag 100 ML IVPB SCH ×3 (01:08→18:03)
[2018-07-03] MEDS: Insulin LISPRO 300 UNITS/3 ML VIAL SQ SCH ×5 (01:09→21:01)
[2018-07-03] MEDS ORDERED: Lisinopril 20 MG TABLET PO SCH (09:00)
[2018-07-03] MEDS: Pregabalin 75 MG CAPSULE PO SCH ×3 (09:12→21:28)
[2018-07-03] MEDS ORDERED: 0.9 % Sodium Chloride 1,000 ML IVC SCH (11:00)
--- NOTE | 2018-07-03 15:33 | Anesthesia Evaluation PreOp ---
Date of Encounter: 07/03/18 Time of Encounter: 15:30 - Past History Planned Operation: I & D Left Great Toe Cardiac History: HTN, Hyperlipidemia Pulmonary History: Denies Any Significant HX EMULSION COATER History: CVA (denies residual deficit), TIA Other Medical History: Diabetes Type II Anesthesia History: No Prior Anesthetic Complications, Past Anesthesia Alcohol Use: none Drug use: none Medications and Allergies Atorvastatin Calcium [Lipitor] 20 mg PO HS 06/12/15 [History] Canagliflozin [Invokana] 300 mg PO DAILY 06/12/15 [History] Duloxetine HCl [Cymbalta] 60 mg PO DAILY 06/12/15 [History] Levomefolate/B6/B12/Algal Oil [Metanx Capsule] 1 cap PO BID 06/12/15 [History] Lisinopril 40 mg PO DAILY 06/12/15 [History] Metformin HCl [Glucophage] 1,000 mg PO BID 06/12/15 [History] Pioglitazone [Actos] 45 mg PO DAILY 06/12/15 [History] Pregabalin [Lyrica] 150 mg PO TID 06/12/15 [History] Saxagliptin HCl [Onglyza] 5 mg PO DAILY 06/12/15 [History] Acetaminophen [Acetaminophen ER] 650 mg PO BID 02/27/16 [History] Dulaglutide [Trulicity] 1.5 mg SQ QWEEK 02/27/16 [History] Doxycycline 100 mg PO BID 07/02/18 [History] Glimepiride [Amaryl] 4 mg PO DAILY 07/02/18 [History] traZODone [TraZODone] 50 mg PO HS PRN 07/02/18 [History] Allergy/AdvReac Type Severity Reaction Status Date / Time liraglutide [From Victoza] Allergy See Verified 02/27/16 09:49 Comments sitagliptin [From Januvia] AdvReac Weakness Verified 04/06/15 10:29 - Meds/Allergy Pre-op Review Medications Reviewed: Yes Allergies Reviewed: Yes Beta Blockers on Current Med List: No Anesthesia Results - Labs 07/02/18 12:29 07/02/18 12:29 - Imaging EKG: report reviewed (07/02/2018 Sinus tachycardia Borderline left axis deviation Low voltage, precordial leads Abnormal R-wave progression, late transition ST elev, probable normal early repol pattern POOR R WAVE PROGRESSION) Anesthesia Exam Vital Signs/O2 Sat/Glucose, Most Recent Temp Pulse Resp BP Pulse Ox 97.9 F 87 16 122/69 95 07/03/18 14:22 07/03/18 14:22 07/03/18 14:22 07/03/18 14:22 07/03/18 14:22 Blood Glucose* 135 Height: 6'/1.83m Weight: 305 lbs/138 kg NPO (# of Hours): 8 Pain Scale: 0 Pain Scale Used: Numeric (1 - 10) - HEENT Pupil (Motor): EOMI Mallampati: III Teeth: Poor dentition Oral Opening: Greater than 3 - EMULSION COATER LOC: Oriented EMULSION COATER Motor: Normal RUE, Normal LUE, Normal RLE, Normal LLE, Normal Face EMULSION COATER Sensory: Normal: RUE, LUE, Face, Deficit: RLE, LLE - Cardiac Rhythm: Regular Murmur: None - Pulmonary Breath Sounds: bilateral Clear Respiratory Effort: Symmetrical Anesthesia Assess/Plan ASA Score: 3 Level of consciousness: Cooperative, Oriented, Tranquil Anesthetic Plan: MAC Monitoring Plan: Standard Monitors
[2018-07-03] MEDS ORDERED: Ropivicaine 0.25% 20 ml Syringe INTRAART ONE (17:15)
[2018-07-03] MEDS ORDERED: *HR* Midazolam HCl 2 MG/2 ML VIAL ONE (17:52)
[2018-07-03] MEDS ORDERED: *HR* Propofol 200 MG/20 ML VIAL IVP ONE ×2 (17:52→18:11)
[2018-07-03] MEDS ORDERED: Lidocaine -MPF 2% 2 ML VIAL ONE (17:52)
[2018-07-03] MEDS ORDERED: *HR* FentaNYL (PF) 100 MCG/2 ML VIAL ONE (17:52)
[2018-07-03] MEDS ORDERED: Ondansetron 4 MG/2 ML VIAL ONE (17:53)
--- NOTE | 2018-07-03 18:50 | Anesthesia Evaluation Post Op ---
Date of Encounter: 07/03/18 Time of Encounter: 18:50 - Lungs Lungs: Clear Ascult./Percussion - Airway Airway: Non-obstructed - Cardiovascular Regular Rate - Mental Status Mental Status: Alert & Oriented, Answers Appropriately - Pain Pain Scale: 0 - Nausea Vomiting Nausea Vomiting: Not Present - Hydration Hydration: NPO - Discharge PostOp Status: Transfer Patient to floor
--- NOTE | 2018-07-03 19:10 | Orthopedic Operative Note ---
Date of procedure: 07/03/18 Pre-op diagnosis: #1 abscess left great toe multiple areas Post-op diagnosis: same Procedure: 07/03/18 19:05 #1: Incision and drainage of multiple areas left foot #1 toe Implants: None Complications: None Anesthesia: MAC, local Local Anesthetics: Other (Ropivacaine) Surgeon: Clem Aggarwal Was there an mechanic's assistant present: No Estimated blood loss (cc): 5 Tourniquet Time (Minutes): 0 Specimen: Cultures aerobic and anaerobic left Condition: stable Disposition: floor Procedure in Detail: 07/03/18 19:06 Detail summary procedure. Patient was brought to surgical suite. Sign in procedure was performed. Patient was then transferred to the surgical table and positioned properly safely securely. Left foot and leg elevated on a foam block. No tourniquet used. Patient operative site was identified. Anesthetic timeout was taken. Left ankle was then prepped with alcohol 3 times. Ankle block carried out without difficulty. Left foot prepped and draped in usual sterile manner. Surgical timeout was taken. 3 wounds were noted on the dorsal medial and limp plantar aspect of left great toe. These ulcerations were then explored with a small stab. Sinus tract was noted to extend distally and laterally and proximally. Dorsal wound was noted to stay within the confines of the ulceration approximately 0.5 cm proximally and distally. Proximal medial aspect wound was superficial. Purulent drainage was noted to emanate from plantar wound. It was cultured with aerobe and anaerobe. At that point incision was placed in the plantar aspect of the left great toe from proximal to distal centered over the plantar aspect of the great toe. Necrotic tissue was noted which was debrided with a pickup and scissor. A Misonix ultrasonic debrider was also used to debride the wound. Incision was approximately 6 cm in length. A sinus tract was noted to radiate proximally and plantarly. Where loculated abscess was drained as well. The wound was thoroughly inspected and all necrotic tissue and nonviable tissue was debrided with a Reynaldo. The wound was then irrigated again with copious amounts sterile saline. A dorsal inspection the wound noted the wound on the medial aspect of the dorsal medial nail groove this was also incised from proximal to distal. It too was debrided of all necrotic tissue. 2 separate incisions were noted. This wound was thoroughly debrided as well with pickup and Metzenbaum as well as ice Jamshid ultrasonic debrider. Satisfied all nonviable tissue debrided from both wounds was irrigated again with sterile saline. Loose closure with 3-0 Prolene. Dorsal wound was closed completely plantar wound was closed leaving an area for adequate packing with quarter-inch plain Nu Gauze soaked in Betadine. Capillary rebound time was noted to be less than 3 seconds on the distal pulp of the toe as well as the plantar aspect of the medial aspect. Wound was then dressed with Adaptic 4 x 4's and Kerlix. Patient was sent to holding room in good condition with vital signs stable. Estimated blood loss less than 10 mL complications none.
[2018-07-03] MEDS ORDERED: Dextrose Gel 15 GM/37.5 ML TUBE PO PRN ×2 (19:16)
[2018-07-03] MEDS ORDERED: Naloxone 0.4 MG/ML INJ IVP PRN (19:16)
[2018-07-03] MEDS ORDERED: traZODone 50 MG TABLET PO PRN (19:16)
[2018-07-03] MEDS ORDERED: D5% in Water 1,000 ML IVC PRN (19:16)
[2018-07-03] MEDS ORDERED: *HR* Dextrose 50 % in Water (Syg) 50 ML SYRINGE IVP PRN (19:16)
[2018-07-03] MEDS ORDERED: Insulin DETEMIR 100 UNIT/ML X5UNITS SQ SCH (21:00)
[2018-07-03] MEDS: *HR* OxyCODONE Immed Rel 5 MG TABLET PO PRN (21:36)
--- NOTE | 2018-07-03 22:19 | Internal Med Progress Note ---
Hospitalist Progress Note - Encounter Date of Encounter: 07/03/18 Time of Encounter: 19:00 - Subjective Interval History: SUBJECTIVE: I saw this patient before the surgery; scheduled for the afternoon. He is nothing by mouth. His pain is under control. OBJECTIVE: Skin: Free of rash and discoloration. His left foot is exposed to light. I can see purplish/bluish discoloration of left great toe with surrounding edema spreading to the left foot. There is no visible discharge. ENMT: Oral/pharyngeal mucosa is normal in appearance. Eyes: Sclera is white. There is no discharge from eyes. Respiratory: Normal breath sounds. I cannot hear any rhonchi or wheezes. CV: Heart is irregularly irregular with no audible murmur. GI: Abdomen is soft and not tender. There is no palpable mass or visceromegaly. Neuro: There is no focal deficits. ADDITIONAL DATA: He gets to a 4 glucose from today is 274 (fasting). ASSESSMENT AND PLAN: Ulcer of her left great toe, and the bottom. With surrounding inflammation, possible infection. See notes from podiatry. The patient will have debridement today. He is on IV vancomycin and IV Zosyn. Hyperlipidemia. He is on Lipitor. - Exam Vitals: Temp Pulse Resp BP Pulse Ox 98.4 F 90 15 148/72 95 07/03/18 19:26 07/03/18 21:27 07/03/18 21:27 07/03/18 21:27 07/03/18 21:27 Exam: xx - Assessment and Plan (1) Toe ulcer due to DM Current Visit: No Status: Acute (2) Cellulitis, toe Current Visit: Yes Status: Acute (3) HLD (hyperlipidemia) Current Visit: Yes Status: Acute - Time Spent with Patient Total time spent is greater than 50% in coordination of care (as documented) at patient's floor/unit and/or counseling patient: 25 - 35 minutes Plan of Care Discussed with: patient Internal Medicine: Result - Labs CBC & Chem 7: 07/02/18 12:29 07/02/18 12:29 - ABG Interpretation ABG results: PT/INR, D-dimer PT 12.6 Seconds (9.4-12.1) H 07/02/18 12:29 Consult Discharge Plan - Plan Referrals: Jesus Manuel Khan DO [Primary Care Provider] - (1) Toe ulcer due to DM Qualifiers: Diabetes mellitus type: type 2 Laterality: left Non-pressure ulcer stage: with fat layer exposed Qualified Code(s): E11.621 - Type 2 diabetes mellitus with foot ulcer; L97.522 - Non-pressure chronic ulcer of other part of left foot with fat layer exposed (2) Cellulitis, toe Qualifiers: Laterality: left Qualified Code(s): L03.032 - Cellulitis of left toe (3) HLD (hyperlipidemia) Qualifiers: Hyperlipidemia type: unspecified Qualified Code(s): E78.5 - Hyperlipidemia, unspecified
[2018-07-04] MEDS ORDERED: Insulin LISPRO 300 UNITS/3 ML VIAL SQ SCH
[2018-07-04] MEDS: Piperacillin/Tazobactam 3.375 GM in 0.9 % Sodium Chloride Mini Bag 100 ML IVPB SCH ×3 (00:25→17:23)
[2018-07-04 00:39] LABS: Basophils % 0.4 %; Eosinophils # 0.2 K/mcL (0.0-0.6); Eosinophils % 1.6 %; Hematocrit 36.1 % (37.5-50.1); Immature Granulocytes % 0.6 % (0-4); Lymphocytes # 1.7 K/mcL (0.6-4.6); Lymphocytes % 15.1 %; Mean Corpuscular HGB Conc 32.4 g/dL (31.6-35.5); Mean Corpuscular Hemoglobin 28.1 pg (28.0-33.3); Mean Corpuscular Volume 86.8 fL (83.0-100.0); Mean Platelet Volume 9.6 fL (9.4-12.4); Monocytes # 0.9 K/mcL (0.0-1.3); Monocytes % 8.3 %; Neutrophils # 8.1 K/mcL (1.6-8.9); Platelet Count 170 K/mcL (140-400); Red Blood Count 4.16 M/mcL (4.19-5.50); Red Cell Distribution Width 14.2 % (11.5-14.5)
[2018-07-04 00:40] LABS: Hemoglobin 11.7 g/dL (12.9-16.9)
[2018-07-04 00:55] LABS: BUN/Creatinine Ratio 18 (6-26); Blood Urea Nitrogen 19 mg/dL (6-20); Calcium 8.5 mg/dL (8.6-10.3); Carbon Dioxide 27 mEq/L (23-29); Chloride 97 mEq/L (98-107); Glucose 320 mg/dL (70-105); Magnesium 1.8 mg/dL (1.6-2.6); Osmolality,Calculated 285 (280-300); Potassium 4.1 mEq/L (3.5-5.1); Sodium 130 mEq/L (136-145); eGFR For Non-African Americans > 60 (> 60)
[2018-07-04] MEDS: 0.9 % Sodium Chloride 1,000 ML IVC SCH ×2 (06:30→15:14)
[2018-07-04] MEDS: Lisinopril 20 MG TABLET PO SCH (09:22)
[2018-07-04] MEDS: Pregabalin 75 MG CAPSULE PO SCH ×3 (09:22→21:29)
[2018-07-04] MEDS: Insulin LISPRO 300 UNITS/3 ML VIAL SQ SCH ×5 (09:23→21:43)
[2018-07-04] MEDS ORDERED: Insulin DETEMIR 100 UNIT/ML X5UNITS SQ SCH (21:00)
[2018-07-05] MEDS: 0.9 % Sodium Chloride 1,000 ML IVC SCH ×2 (00:04→11:44)
[2018-07-05] MEDS: *HR* OxyCODONE Immed Rel 5 MG TABLET PO PRN ×2 (00:13→21:10)
[2018-07-05] MEDS ORDERED: Aminoglycoside Consult 1 EACH MC ONE (08:13)
[2018-07-05] MEDS: Pregabalin 75 MG CAPSULE PO SCH ×3 (08:46→21:10)
[2018-07-05] MEDS: Lisinopril 20 MG TABLET PO SCH (08:46)
[2018-07-05] MEDS: Insulin LISPRO 300 UNITS/3 ML VIAL SQ SCH ×7 (08:47→21:09)
[2018-07-05] MEDS: Piperacillin/Tazobactam 3.375 GM in 0.9 % Sodium Chloride Mini Bag 100 ML IVPB SCH ×3 (08:48→16:51)
--- NOTE | 2018-07-05 16:32 | Internal Med Progress Note ---
Hospitalist Progress Note - Encounter Date of Encounter: 07/05/18 Time of Encounter: 16:32 - Subjective Interval History: SUBJECTIVE: The patient underwent surgery on his left great toe 2 days ago. Incision and drainage of multiple areas of left foot in the area of first toe was done. Wound culture has been obtained. He is pain he is under control. There is no fever or chills. Swelling of that area has significantly decreased in intensity. OBJECTIVE: Skin: Free of rash and discoloration. His left foot is exposed to light. I can see purplish/bluish discoloration of left great toe with surrounding edema spreading to the left foot. There is no visible discharge. ENMT: Oral/pharyngeal mucosa is normal in appearance. Eyes: Sclera is whie. There is no discharge from eyes. Respiratory: Normal breath sounds. I cannot hear any rhonchi or wheezes. CV: Heart is irregularly irregular with no audible murmur. GI: Abdomen is soft and not tender. There is no palpable mass or visceromegaly. Neuro: There is no focal deficits. ADDITIONAL DATA: He has elevated glucose level. I will increase his dose of Levemir and prandial Humalog. ASSESSMENT AND PLAN: Ulcer of her left great toe, and the bottom. With surrounding inflammation, possible infection. See notes from podiatry. The patient underwent debridement. He is on IV vancomycin and IV Zosyn. Hyperlipidemia. He is on Lipitor. - Exam Vitals: Temp Pulse Resp BP Pulse Ox 98.4 F 72 20 165/65 95 07/05/18 15:15 07/05/18 15:15 07/05/18 15:15 07/05/18 15:15 07/05/18 15:15 Exam: xx - Assessment and Plan (1) Toe ulcer due to DM Current Visit: No Status: Acute (2) Cellulitis, toe Current Visit: Yes Status: Acute (3) HLD (hyperlipidemia) Current Visit: Yes Status: Acute (4) Morbid obesity with BMI of 40.0-44.9, adult Current Visit: Yes Status: Acute - Time Spent with Patient Total time spent is greater than 50% in coordination of care (as documented) at patient's floor/unit and/or counseling patient: 25 - 35 minutes Plan of Care Discussed with: patient Internal Medicine: Result - Labs CBC & Chem 7: 07/04/18 00:21 07/04/18 00:21 - ABG Interpretation ABG results: PT/INR, D-dimer PT 12.6 Seconds (9.4-12.1) H 07/02/18 12:29 Consult Discharge Plan - Plan Referrals: Jesus Manuel Khan DO [Primary Care Provider] - (1) Toe ulcer due to DM Qualifiers: Diabetes mellitus type: type 2 Laterality: left Non-pressure ulcer stage: with fat layer exposed Qualified Code(s): E11.621 - Type 2 diabetes mellitus with foot ulcer; L97.522 - Non-pressure chronic ulcer of other part of left foot with fat layer exposed (2) Cellulitis, toe Qualifiers: Laterality: left Qualified Code(s): L03.032 - Cellulitis of left toe (3) HLD (hyperlipidemia) Qualifiers: Hyperlipidemia type: unspecified Qualified Code(s): E78.5 - Hyperlipidemia, unspecified
[2018-07-05] MEDS: Insulin DETEMIR 100 UNIT/ML X5UNITS SQ SCH (21:09)
[2018-07-06] MEDS: Piperacillin/Tazobactam 3.375 GM in 0.9 % Sodium Chloride Mini Bag 100 ML IVPB SCH ×3 (00:58→15:26)
[2018-07-06] MEDS: *HR* OxyCODONE Immed Rel 5 MG TABLET PO PRN (01:11)
[2018-07-06 05:27] LABS: Basophils # 0.1 K/mcL (0.0-0.2); Basophils % 0.5 %; Eosinophils # 0.3 K/mcL (0.0-0.6); Eosinophils % 2.3 %; Hematocrit 36.1 % (37.5-50.1); Hemoglobin 11.7 g/dL (12.9-16.9); Immature Granulocytes % 2.4 % (0-4); Lymphocytes % 18.5 %; Mean Corpuscular HGB Conc 32.4 g/dL (31.6-35.5); Mean Corpuscular Hemoglobin 27.9 pg (28.0-33.3); Mean Platelet Volume 9.7 fL (9.4-12.4); Monocytes # 0.9 K/mcL (0.0-1.3); Monocytes % 7.7 %; Neutrophils # 7.5 K/mcL (1.6-8.9); Nucleated Red Blood Cells 0.2 /100 WBC (0); Platelet Count 183 K/mcL (140-400); Red Cell Distribution Width 13.7 % (11.5-14.5); Segmented Neutrophils % 68.6 %
[2018-07-06 05:44] LABS: BUN/Creatinine Ratio 18 (6-26); Blood Urea Nitrogen 17 mg/dL (6-20); Carbon Dioxide 28 mEq/L (23-29); Chloride 100 mEq/L (98-107); Glucose 241 mg/dL (70-105); Osmolality,Calculated 287 (280-300); Sodium 134 mEq/L (136-145); eGFR For Non-African Americans > 60 (> 60)
[2018-07-06] MEDS: Lisinopril 20 MG TABLET PO SCH (08:28)
[2018-07-06] MEDS: Insulin LISPRO 300 UNITS/3 ML VIAL SQ SCH ×7 (08:28→20:51)
[2018-07-06] MEDS: Pregabalin 75 MG CAPSULE PO SCH ×3 (08:28→20:50)
--- NOTE | 2018-07-06 12:15 | Podiatry Progress Note ---
Date of Encounter: 07/06/18 Time of Encounter: 11:50 - Assessment and Plan (1) Toe ulcer due to DM Current Visit: No Status: Acute Assessment: -Post op day #3 #1: Incision and drainage of multiple areas left foot #[address] Aggarwal on 07/03/2018 -Surgical wounds with sutures intact, no signs of dehiscence. Center of surgical wound plantar aspect left open to allow for packing. No drainage. No lymphangitis. Mild erythema noted to left great toe extending to base but normal inflammatory response. No complications noted. -3/4 PT/DP pulse -Cap refill less than 3 seconds -WBC 11.0 -Wound culture preliminary for gram positive cocci Plan: -Dressing changed and packing removed -Site cleaned with sterile .9NS -Repacked with plain packing -Covered with 4x4 dry gauze and Kerlix -Secured with Medipore tape -Continue dressing changes as ordered -Will continue to monitor Qualifiers: Diabetes mellitus type: type 2 Laterality: left Non-pressure ulcer stage: with fat layer exposed Qualified Code(s): E11.621 - Type 2 diabetes mellitus w ith foot ulcer; L97.522 - Non-pressure chronic ulcer of other part of left foot with fat layer exposed Subjective Interval history: Post op day #3 #1: Incision and drainage of multiple areas left foot #[address] Aggarwal on 07/03/2018 Patient is resting with eyes closed, aroused easily. Oriented x 3, well nourished, in no acute distress. Patient denies any chest pain, shortness of breath, or calf pain. Patient denies any fever, chills, nausea, vomiting, or diarrhea. He does report he feels more tired than usual but states he did not sleep very well last night. Blood glucose 191. Objective - Vital Signs Vital Signs: Vital Signs Temp Pulse Resp BP Pulse Ox 07/06/18 07:41 98.1 F 72 16 123/70 95 07/06/18 04:17 97.9 F 70 15 128/67 96 07/05/18 19:03 98.6 F 74 15 165/77 97 07/05/18 15:15 98.4 F 72 20 165/65 95 Intake and Output 07/05/18 07/06/18 07/06/18 23:59 07:59 15:59 Intake Total 860 / 3620 100 / 100 Output Total 0 / 0 Balance 860 / 3620 100 / 100 Intake: IV Fluids 860 / 3260 100 / 100 0.9 % Sodium Chloride 1,000 ML 510 / 2460 @ 100 mls/hr IVC .Q10H [facility] Rx#: [id number] Zosyn 3.375 GM In 0.9 % Sodium 100 / 300 100 / 100 Chloride (Mini-Bag +) 100 ML @ 25 mls/hr IVPB Q8HR [facility] Rx#: [id number] Vancocin 1,500 MG In 0.9 % 250 / 500 Sodium Chloride 250 ML @ 166.67 mls/hr IVPB Q12H [facility] Rx#: [id number] Oral 0 / 360 0 / 0 Output: Urine 0 / 0 Other: # Voids 1 Weight 138.5 kg Blood Glucose* 310 178 Patient Weight 07/06/18 23:59 Weight 138.5 kg - Exam Exam: Constitutional: Alert, oriented x 3, no acute distress noted, well nourished Vascular: 3/4 PT/DP pulses noted, cap refill less than 3 seconds, no edema noted, no pain with calf squeeze Neurological: Absent protective sensation Dermatological: Surgical wounds with sutures intact, no signs of dehiscence. Center of surgical wound plantar aspect left open to allow for packing. No drainage. No lymphangitis. Mild erythema noted to left great toe extending to base but normal inflammatory response. No complications noted. Musculoskeletal: 4/5 muscle strength, normal muscle tone - Lab Result Diagrams: 07/06/18 04:28 07/06/18 04:28 Labs: Abnormal lab results WBC 17.3 K/mcL (4.3-11.1) H 07/02/18 12:29 RBC 4.16 M/mcL (4.19-5.50) L 07/04/18 00:21 Hgb 11.7 g/dL (12.9-16.9) L 07/06/18 04:28 Hct 36.1 % (37.5-50.1) L 07/06/18 04:28 MCH 27.9 pg (28.0-33.3) L 07/06/18 04:28 13.7 K/mcL (1.6-8.9) H 07/02/18 12:29 Nucleated RBCs/100 WBC 0.2 /100 WBC (0) H 07/06/18 04:28 ESR 44 mm/hr (0-10) H 07/06/18 04:28 PT 12.6 Seconds (9.4-12.1) H 07/02/18 12:29 Sodium 134 mEq/L (136-145) L 07/06/18 04:28 Chloride 97 mEq/L (98-107) L 07/04/18 00:21 BUN 26 mg/dL (6-20) H 07/02/18 12:29 1.40 mg/dL (0.70-1.30) H 07/02/18 12:29 Est GFR (Non-Af Amer) 55 (> 60) L 07/02/18 12:29 Glucose 241 mg/dL (70-105) H 07/06/18 04:28 POC Glucose 310 mg/dL (70-99) H 07/05/18 20:18 Calcium 8.5 mg/dL (8.6-10.3) L 07/04/18 00:21 186 mg/L (Less than 10) H 07/02/18 12:29 Ur Specific [place] > 1.030 (1.010-1.025) H 07/02/18 14:13 >=1000 mg/dL (Normal) H 07/02/18 14:13 Vancomycin Trough 11 mcg/mL (5-10) H 07/04/18 00:21 Microbiology, Last 48 Hours 07/03/18 18:05 Wound Culture - Preliminary Other-Specify in Comments Gram Positive Cocci 07/03/18 18:05 Anaerobic Culture - Preliminary Other-Specify in Comments Culture is incubating. Consult Discharge Plan - Plan Referrals: Jesus Manuel Khan DO [Primary Care Provider] -
[2018-07-06] MEDS: Insulin DETEMIR 100 UNIT/ML X5UNITS SQ SCH (20:50)
[2018-07-07] MEDS: Piperacillin/Tazobactam 3.375 GM in 0.9 % Sodium Chloride Mini Bag 100 ML IVPB SCH ×2 (00:19→08:55)
[2018-07-07] MEDS: *HR* OxyCODONE Immed Rel 5 MG TABLET PO PRN (00:30)
--- NOTE | 2018-07-07 06:22 | Internal Med Progress Note ---
Hospitalist Progress Note - Encounter Date of Encounter: 07/06/18 Time of Encounter: 19:00 - Subjective Interval History: - Subjective Interval History: SUBJECTIVE: The patient underwent surgery on his left great toe 3 days ago. Incision and drainage of multiple areas of left foot in the area of first toe was done. Wound culture has been obtained. He is pain he is under control. There is no fever or chills. Swelling of that area has significantly decreased in intensity. He is able to ambulate on his own. OBJECTIVE: Skin: Free of rash and discoloration. His left foot is exposed to light. I can see purplish/bluish discoloration of left great toe with surrounding edema spreading to the left foot. There is no visible discharge. ENMT: Oral/pharyngeal mucosa is normal in appearance. Eyes: Sclera is whie. There is no discharge from eyes. Respiratory: Normal breath sounds. I cannot hear any rhonchi or wheezes. CV: Heart is irregularly irregular with no audible murmur. GI: Abdomen is soft and not tender. There is no palpable mass or visceromegaly. Neuro: There is no focal deficits. ADDITIONAL DATA: Fingerstick for glucose from today is 178, 194 and 220. CBC is normal. BMP is normal; except of elevated glucose of 241. Wound culture is growing Streptococcus pseudoporcinus. ASSESSMENT AND PLAN: Ulcer of her left great toe, and the bottom. With surrounding inflammation, possible infection. See notes from podiatry. The patient underwent debridement. I discontinue IV vancomycin. To continue IV Zosyn. The patient will likely be discharged home tomorrow on oral antibiotic. I feel, that Augmentin would be the right one. Hyperlipidemia. He is on Lipitor. Disposition: I will discuss discharge planning with podiatry service. - Exam Vitals: Temp Pulse Resp BP Pulse Ox 98.2 F 80 16 133/78 93 07/07/18 05:26 07/07/18 05:26 07/07/18 05:26 07/07/18 05:26 07/07/18 05:26 Exam: xx - Assessment and Plan (1) Toe ulcer due to DM Current Visit: No Status: Acute (2) Cellulitis, toe Current Visit: Yes Status: Acute (3) HLD (hyperlipidemia) Current Visit: Yes Status: Acute (4) Morbid obesity with BMI of 40.0-44.9, adult Current Visit: Yes Status: Acute - Time Spent with Patient Total time spent is greater than 50% in coordination of care (as documented) at patient's floor/unit and/or counseling patient: 25 - 35 minutes Plan of Care Discussed with: patient Internal Medicine: Result - Labs CBC & Chem 7: 07/06/18 04:28 07/06/18 04:28 - ABG Interpretation ABG results: PT/INR, D-dimer PT 12.6 Seconds (9.4-12.1) H 07/02/18 12:29 Consult Discharge Plan - Plan Referrals: Jesus Manuel Khan DO [Primary Care Provider] - (1) Toe ulcer due to DM Qualifiers: Diabetes mellitus type: type 2 Laterality: left Non-pressure ulcer stage: with fat layer exposed Qualified Code(s): E11.621 - Type 2 diabetes mellitus with foot ulcer; L97.522 - Non-pressure chronic ulcer of other part of left foot with fat layer exposed (2) Cellulitis, toe Qualifiers: Laterality: left Qualified Code(s): L03.032 - Cellulitis of left toe (3) HLD (hyperlipidemia) Qualifiers: Hyperlipidemia type: unspecified Qualified Code(s): E78.5 - Hyperlipidemia, unspecified
[2018-07-07] MEDS: Insulin LISPRO 300 UNITS/3 ML VIAL SQ SCH ×4 (08:54→11:39)
[2018-07-07] MEDS: Pregabalin 75 MG CAPSULE PO SCH (08:56)
[2018-07-07] MEDS: Lisinopril 20 MG TABLET PO SCH (08:56)
[2018-07-07 09:50] VITALS: BP 130/79
--- NOTE | 2018-07-07 11:13 | Podiatry Progress Note ---
Date of Encounter: 07/07/18 Time of Encounter: 11:00 - Assessment and Plan (1) Toe ulcer due to DM Current Visit: No Status: Acute Assessment: -Post op day #4: #1: Incision and drainage of multiple areas left foot #[address] Aggarwal on 07/03/2018 -Surgical wounds with sutures intact, no signs of dehiscence. Center of surgical wound plantar aspect left open to allow for packing. Minimal serosanguineous drainage noted on packing. No lymphangitis. Mild erythema noted to left great toe extending to base appears stable and part of inflammatory response. No complications noted. -3/ PT/DP pulse -Cap refill less than 3 seconds -WBC 11.0 07/06/2018 -Wound culture final: Streptococcus pseudoporcinus Plan: -Dressing changed and packing removed -Site cleaned with sterile .9NS and peroxide -Repacked with plain packing -Covered with 4x4 dry gauze and Kerlix -Secured with Medipore tape -Set up Home Health for dressings changes twice a day, dressing supplies written -Okay with Augmentin PO -Okay to discharge home -Follow up Friday in Podiatry office with Benita Mitchell CNP, please call and make appointment before discharge Qualifiers: Diabetes mellitus type: type 2 Laterality: left Non-pressure ulcer stage: with fat layer exposed Qualified Code(s): E11.621 - Type 2 diabetes mellitus with foot ulcer; L97.522 - Non-pressure chronic ulcer of other part of left foot with fat layer exposed Subjective Interval history: Post op day #4 #1: Incision and drainage of multiple areas left foot #[address] Aggarwal on 07/03/2018 Patient is resting with eyes closed, aroused easily. Oriented x 3, well nourished, in no acute distress. Patient denies any chest pain, shortness of breath, or calf pain. Patient denies any fever, chills, nausea, vomiting, or diarrhea. No acute events through the night. Patient states he is ready to go home. Objective - Vital Signs Vital Signs: Vital Signs Temp Pulse Resp BP Pulse Ox 07/07/18 09:43 98.3 F 71 16 130/79 96 07/07/18 07:05 98.6 F 73 18 131/79 97 07/07/18 05:26 98.2 F 80 16 133/78 93 07/07/18 00:32 98.9 F 69 20 142/71 93 07/06/18 19:36 99.2 F 75 16 138/61 95 Intake and Output 07/06/18 07/07/18 07/07/18 23:59 07:59 15:59 Intake Total 100 / 300 100 / 100 Balance 100 / 300 100 / 100 Intake: IV Fluids 100 / 300 100 / 100 Zosyn 3.375 GM In 0.9 % Sodium 100 / 300 100 / 100 Chloride (Mini-Bag +) 100 ML @ 25 mls/hr IVPB Q8HR [facility] Rx#: [id number] Oral 0 / 0 0 / 0 Other: # Voids 1 1 Weight 138.5 kg Blood Glucose* 311 206 Patient Weight 07/07/18 23:59 Weight 138.5 kg - Exam Exam: Constitutional: Alert, oriented x 3, no acute distress noted, well nourished Vascular: 3/4 PT/DP pulses noted, cap refill less than 3 seconds, no edema noted, no pain with calf squeeze Neurological: Absent protective sensation Dermatological: Surgical wounds with sutures intact, no signs of dehiscence. Center of surgical wound plantar aspect left open to allow for packing. Minimal serosanguineous drainage noted on packing. No lymphangitis. Mild erythema noted to left great toe extending to base appears stable and part of inflammatory response. No complications noted. Musculoskeletal: 4/5 muscle strength, normal muscle tone - Lab Result Diagrams: 07/06/18 04:28 07/06/18 04:28 Labs: Abnormal lab results WBC 17.3 K/mcL (4.3-11.1) H 07/02/18 12:29 RBC 4.16 M/mcL (4.19-5.50) L 07/04/18 00:21 Hgb 11.7 g/dL (12.9-16.9) L 07/06/18 04:28 Hct 36.1 % (37.5-50.1) L 07/06/18 04:28 MCH 27.9 pg (28.0-33.3) L 07/06/18 04:28 13.7 K/mcL (1.6-8.9) H 07/02/18 12:29 Nucleated RBCs/100 WBC 0.2 /100 WBC (0) H 07/06/18 04:28 ESR 44 mm/hr (0-10) H 07/06/18 04:28 PT 12.6 Seconds (9.4-12.1) H 07/02/18 12:29 Sodium 134 mEq/L (136-145) L 07/06/18 04:28 Chloride 97 mEq/L (98-107) L 07/04/18 00:21 BUN 26 mg/dL (6-20) H 07/02/18 12:29 1.40 mg/dL (0.70-1.30) H 07/02/18 12:29 Est GFR (Non-Af Amer) 55 (> 60) L 07/02/18 12:29 Glucose 241 mg/dL (70-105) H 07/06/18 04:28 POC Glucose 311 mg/dL (70-99) H 07/06/18 20:20 Calcium 8.5 mg/dL (8.6-10.3) L 07/04/18 00:21 186 mg/L (Less than 10) H 07/02/18 12:29 Ur Specific [place] > 1.030 (1.010-1.025) H 07/02/18 14:13 >=1000 mg/dL (Normal) H 07/02/18 14:13 Vancomycin Trough 11 mcg/mL (5-10) H 07/04/18 00:21 Microbiology, Last 48 Hours 07/03/18 18:05 Anaerobic Culture - Preliminary Other-Specify in Comments Culture is incubating. 07/03/18 18:05 Wound Culture - Final Other-Specify in Comments Streptococcus pseudoporcinus Consult Discharge Plan - Plan Referrals: Jesus Manuel Khan DO [Primary Care Provider] - Benita Mitchell, DRAWING SUPERVISOR [Advanced Practice Nurse] - 07/15/18 8:30 am
--- NOTE | 2018-07-07 13:10 | Discharge Summary ---
Orders not resulted at time of discharge: Pending orders 07/02/18 12:31 Culture,Blood [BC] Stat 07/03/18 18:05 Culture,Anaerobic [RM] Routine Date of Encounter: 07/07/18 Time of Encounter: 13:08 - Discharge Diagnosis (1) Toe ulcer due to DM Priority: Primary Status: Acute Qualifiers: Diabetes mellitus type: type 2 Laterality: left Non-pressure ulcer stage: with fat layer exposed Qualified Code(s): E11.621 - Type 2 diabetes mellitus with foot ulcer; L97.522 - Non-pressure chronic ulcer of other part of left foot with fat layer exposed (2) Cellulitis, toe Priority: Primary Status: Acute Qualifiers: Laterality: left Qualified Code(s): L03.032 - Cellulitis of left toe (3) HLD (hyperlipidemia) Priority: Secondary Status: Chronic Qualifiers: Hyperlipidemia type: unspecified Qualified Code(s): E78.5 - Hyperlipidemia, unspecified (4) Morbid obesity with BMI of 40.0-44.9, adult Priority: Secondary Status: Chronic Hospital course: HOSPITAL COURSE: The patient is a 42-year-old male with long-standing type 2 diabetes mellitus. Fighting with a diabetic ulcer located at the dorsal portion of left great toe for about 1 month. Recently associated with redness and swelling of the whole left great toe. He reported no fever or chills to us. He was sent to the hospital by his melter helper for debridement. The surgery was done in the next day after the admission. Wound cultures have been obtained. There are growing Streptococcus pseudoporcinus. We were dealing with his type 2 diabetes mellitus giving him Levemir and when necessary Humalog. He was experiencing significantly less pain on the day of discharge. CONDITION AT DISCHARGE: It is good. He ambulates on his own. There is mild/moderate swelling of left great toe. Associated with mild/moderate pain. Skin: Free of rash and discoloration. The surgical dressing is applied to the left great toe area. Respiratory: Normal breath sounds with no crackles and wheezes bilaterally. CV: Heart is regular with no gallop or murmur. GI: Abdomen is flat and soft with no palpable mass or visceromegaly. Neuro exam: There is no focal deficits. Normal speech, swallowing and gait. SEE DISCHARGE ORDERS/MEDICATIONS Follow-up with podiatry on 07/15/18. He will be taking Augmentin 875 for the next 2-3 weeks. Discharge discussed with: patient, family - Time Spent with Patient Total time spent providing and/or coordinating discharge services: Time spent: Greater than 30 minutes (35 minutes...) - Discharge Medications Prescriptions: New Amoxicillin/Clavulanate [Augmentin] 875 mg PO BIDWM 21 Days #42 tablet OxyCODONE Immed Rel [Roxicodone 5 MG] 10 mg PO Q6HR PRN 5 Days #20 tablet PRN Reason: Moderate Pain Continued Duloxetine HCl [Cymbalta] 60 mg PO DAILY Atorvastatin Calcium [Lipitor] 20 mg PO HS Pioglitazone [Actos] 45 mg PO DAILY Lisinopril 40 mg PO DAILY Metformin HCl [Glucophage] 1,000 mg PO BID Levomefolate/B6/B12/Algal Oil [Metanx Capsule] 1 cap PO BID Saxagliptin HCl [Onglyza] 5 mg PO DAILY Canagliflozin [Invokana] 300 mg PO DAILY Pregabalin [Lyrica] 150 mg PO TID Dulaglutide [Trulicity] 1.5 mg SQ QWEEK Acetaminophen [Acetaminophen ER] 650 mg PO BID Glimepiride [Amaryl] 4 mg PO DAILY traZODone [TraZODone] 50 mg PO HS PRN PRN Reason: Sleep Discontinued Doxycycline 100 mg PO BID Home Medications: Atorvastatin Calcium [Lipitor] 20 mg PO HS 06/12/15 [History] Canagliflozin [Invokana] 300 mg PO DAILY 06/12/15 [History] Duloxetine HCl [Cymbalta] 60 mg PO DAILY 06/12/15 [History] Levomefolate/B6/B12/Algal Oil [Metanx Capsule] 1 cap PO BID 06/12/15 [History] Lisinopril 40 mg PO DAILY 06/12/15 [History] Metformin HCl [Glucophage] 1,000 mg PO BID 06/12/15 [History] Pioglitazone [Actos] 45 mg PO DAILY 06/12/15 [History] Pregabalin [Lyrica] 150 mg PO TID 06/12/15 [History] Saxagliptin HCl [Onglyza] 5 mg PO DAILY 06/12/15 [History] Acetaminophen [Acetaminophen ER] 650 mg PO BID 02/27/16 [History] Dulaglutide [Trulicity] 1.5 mg SQ QWEEK 02/27/16 [History] Glimepiride [Amaryl] 4 mg PO DAILY 07/02/18 [History] traZODone [TraZODone] 50 mg PO HS PRN 07/02/18 [History] Amoxicillin/Clavulanate [Augmentin] 875 mg PO BIDWM 21 Days #42 tablet 07/07/18 [Rx] OxyCODONE Immed Rel [Roxicodone 5 MG] 10 mg PO Q6HR PRN 5 Days #20 tablet 07/07/18 [Rx] Allergies/Adverse Reactions: Allergy/AdvReac Type Severity Reaction Status Date / Time liraglutide [From Victoza] Allergy See Verified 02/27/16 09:49 Comments sitagliptin [From Januvia] AdvReac Weakness Verified 04/06/15 10:29 Date of admission: 07/02/18 19:15 Primary care physician: Jesus Manuel Khan DO Consults: 07/02/18 12:26 Consult to Physician [CONS] Stat Consulting Provider: Waldo Canales Reason for Consult: left great toe ulcer/infection Call Completed: No 07/02/18 15:55 Consult to Podiatry [CONS] Stat Consulting Provider: Podiatry [facility] Reason for Consult: foot infection/ dr. harden Call Completed: Yes 07/02/18 17:29 Consult to Senior Office Support Assistant Sosa [CONS] Routine Reason for SW Consult: Possible abx needs Discharging clinician: Arcenio Antonio Anticipated date of discharge: 07/07/18 - Constitutional Vitals: Temp Pulse Resp BP Pulse Ox 98.3 F 71 16 130/79 96 07/07/18 09:43 07/07/18 09:43 07/07/18 09:43 07/07/18 09:43 07/07/18 09:43 General appearance: Present: A&O X 3, no acute distress, answers questions appropriately Exam: xx - Patient Status Disposition: Home, Self-Care Condition: Good Functional capacity at discharge: independent ambulation Overall status at discharge: patient is progressing back to baseline - Discharge Instructions Instructions: Cellulitis (DC), Diabetes Mellitus Type 2 in Adults (DC) Follow Up With: Jesus Manuel Khan DO [Primary Care Provider] - (Web request. Office will call patient with date and time of appointment. Thank you.) Benita Mitchell CNP [Advanced Practice Nurse] - 07/15/18 8:30 am Additional Instructions: Follow-up appointments: If there is not an appointment listed below, please call your physician and schedule a follow-up appointment. If you have congestive heart failure and your symptoms return, make an appointment with your physician. Medication List: Carry an up to date list of medications you are taking at all time. We have given you an updated medication list including any new medications that you have been prescribed. Please provide that list to your primary provider Symptoms: If your condition changes or you experience any of the following symptoms, notify your physician immediately: Unusual or worsening pain, fever, persistent nausea and vomiting, bleeding, increase in swelling (especially in your legs), sudden weight gain, extreme dizziness, chest pain, increased drainage or redness from a wound or incision. Go to the emergency department if you experience a problem with breathing. Weights: If you have a history of swelling or shortness of breath, weigh yourself daily and notify your physician if you have a weight gain of two or more pounds in one day or 5 or more pounds in a week. If you experience any of the warning signs for stroke: Sudden numbness or weakness of the face, arm or leg; especially on one side of the body, sudden confusion, trouble speaking or understanding, sudden trouble seeing in one or both eyes, sudden trouble walking, dizziness, loss of balance or coordination, sudden sever headache with no cause; Call 911 or go to the emergency room. Stroke is a medical emergency. Some risk factors for stroke: Age, cigarette smoking, diabetes, excessive alcohol consumption, family history, high blood pressure, overweight, physical inactivity, prior stroke, heart attack, diagnosis of carotid artery stenosis or other artery disease. If you smoke, STOP: Smoking or tobacco use significantly increases your risk of heart and lung disease. Your chance of disease greatly increases if you continue to smoke. For more information, call the [employer] tobacco quit line for smoking cessation 5-977-AQOJ-NOW ( ) -Follow up Friday in Podiatry office with Benita Mitchell CNP, please call and make appointment before discharge - Diet and Activity Activity: increase activity as tolerated Diet: diabetic diet
--- NOTE | 2018-07-07 14:39 | Physician Discharge Referral ---
Home Health/Hosp Referral Info Transfer to: Home Health Attending Provider: Damon Antonio MD Provider in Charge Post Discharge: PCP - Diagnosis (1) Toe ulcer due to DM Status: Acute (2) Cellulitis, toe Priority: Primary Status: Acute (3) HLD (hyperlipidemia) Priority: Secondary Status: Chronic (4) Morbid obesity with BMI of 40.0-44.9, adult Priority: Secondary Status: Chronic - Respiratory Orders None Smoking Cessation: Smoking cessation has been advised. For more information, call the [employer] Quit Line at 0-689-XWIE-NOW. - Dressing/Wound Care Site: Left great toe Type of Dressing/Treatments w/Frequency: -Dressing and packing removed -Site cleaned with sterile .9NS and peroxide -Repacked with plain packing -Covered with 4x4 dry gauze and Kerlix -Secured with Medipore tape - Diet/Nutrition Diet/Nutrition Orders: No Concentrated Sweets - Activity Activity Orders: Up ad marichuy - Services Needed Following services are medically necessary services: Nursing (WOUND CARE NEEDED...) - Transfer Medications Prescriptions: Amoxicillin/Clavulanate [Augmentin] 875 mg PO BIDWM 21 Days #42 tablet OxyCODONE Immed Rel [Roxicodone 5 MG] 10 mg PO Q6HR PRN 5 Days #20 tablet PRN Reason: Moderate Pain Home Medications: Atorvastatin Calcium [Lipitor] 20 mg PO HS 06/12/15 [History] Canagliflozin [Invokana] 300 mg PO DAILY 06/12/15 [History] Duloxetine HCl [Cymbalta] 60 mg PO DAILY 06/12/15 [History] Levomefolate/B6/B12/Algal Oil [Metanx Capsule] 1 cap PO BID 06/12/15 [History] Lisinopril 40 mg PO DAILY 06/12/15 [History] Metformin HCl [Glucophage] 1,000 mg PO BID 06/12/15 [History] Pioglitazone [Actos] 45 mg PO DAILY 06/12/15 [History] Pregabalin [Lyrica] 150 mg PO TID 06/12/15 [History] Saxagliptin HCl [Onglyza] 5 mg PO DAILY 06/12/15 [History] Acetaminophen [Acetaminophen ER] 650 mg PO BID 02/27/16 [History] Dulaglutide [Trulicity] 1.5 mg SQ QWEEK 02/27/16 [History] Glimepiride [Amaryl] 4 mg PO DAILY 07/02/18 [History] traZODone [TraZODone] 50 mg PO HS PRN 07/02/18 [History] Amoxicillin/Clavulanate [Augmentin] 875 mg PO BIDWM 21 Days #42 tablet 07/07/18 [Rx] OxyCODONE Immed Rel [Roxicodone 5 MG] 10 mg PO Q6HR PRN 5 Days #20 tablet 07/07/18 [Rx] Allergies/Adverse Reactions: Allergy/AdvReac Type Severity Reaction Status Date / Time liraglutide [From Victoza] Allergy See Verified 02/27/16 09:49 Comments sitagliptin [From Januvia] AdvReac Weakness Verified 04/06/15 10:29 Certification: Further, I certify that my clinical findings support that this patient is homebound (i.e. absences from home require considerable and taxing effort and are for medical reasons or protestant services or infrequently or short duration when for other reasons) because: Homebound Reason: Patient requires assistance of a person or device to safely leave home Attestation: My signature below is to certify that this patient is under my care and that I, or nurse practitioner, or a physician's early childhood teacher assistant working with me, has a [id number] encounter with this patient.
== END 2018-07-07 14:24 | disposition home or self-care (01) | DRG 380 ==
LOC: EMEROOARM 11:44 → 3ANU 11:44 → SUATTDRO 19:15
PROVIDERS: ADMIT Student in an Organized Health Care Education/Training Program; ATTEND Internal Medicine

== ENCOUNTER 2018-11-05 11:51 | Observation (INO) ==
[2018-11-05 13:59] LABS: Basophils % 0.2 %; Eosinophils # 0.3 K/mcL (0.0-0.6); Eosinophils % 2.3 %; Hematocrit 39.8 % (37.5-50.1); Hemoglobin 12.7 g/dL (12.9-16.9); Immature Granulocytes % 0.4 % (0-4); Lymphocytes # 1.6 K/mcL (0.6-4.6); Lymphocytes % 11.5 %; Mean Corpuscular HGB Conc 31.9 g/dL (31.6-35.5); Mean Corpuscular Hemoglobin 27.8 pg (28.0-33.3); Mean Corpuscular Volume 87.1 fL (83.0-100.0); Mean Platelet Volume 10.1 fL (9.4-12.4); Monocytes # 1.1 K/mcL (0.0-1.3); Neutrophils # 10.6 K/mcL (1.6-8.9); Platelet Count 156 K/mcL (140-400); Red Blood Count 4.57 M/mcL (4.19-5.50); Red Cell Distribution Width 14.4 % (11.5-14.5); Segmented Neutrophils % 77.6 %; White Blood Count 13.7 K/mcL (4.3-11.1)
[2018-11-05 14:13] LABS: BUN/Creatinine Ratio 20 (6-26); Blood Urea Nitrogen 21 mg/dL (6-20); C-Reactive Protein 76 mg/L (Less than 10); Calcium 9.7 mg/dL (8.6-10.3); Carbon Dioxide 27 mEq/L (23-29); Chloride 95 mEq/L (98-107); Glucose 343 mg/dL (70-105); Osmolality,Calculated 287 (280-300); Potassium 4.2 mEq/L (3.5-5.1); Sodium 130 mEq/L (136-145); eGFR For African Americans > 60 (> 60); eGFR For Non-African Americans > 60 (> 60)
[2018-11-05] MEDS ORDERED: Piperacillin/Tazobactam 3.375 GM in Water for inj. (sterile) 20 ML IVP ONE (14:27)
--- NOTE | 2018-11-05 14:30 | Emergency Department Note ---
Disposition Clinical Impression: Toe infection Disposition: Admitted As Inpatient Condition: Fair Time of Disposition: 14:28 General Adult HPI - General Chief complaint: ED Extremity Problem,Nontraumatic Stated complaint: left toe infection Time Seen by Provider: 11/05/18 12:12 Source: patient Mode of arrival: ambulatory Limitations: no limitations Nursing Notes Reviewed: Yes Vital Signs Reviewed: Yes - History of Present Illness HPI Narrative: Patient is a 42-year-old male with a past medical history of diabetes, diabetic neuropathy as well as infection of the feet as well as diabetic ulcers presents to the ED for evaluation of a foot ulcer that is been worsening over the past month. Patient states that he had a revision performed earlier this year with podiatry and was initially wound clinic was discharged from wound clinic and states that over the past month he has had increasing redness to the left toe as well as a open wound on the plantar aspect that is been increasing in size and depth. He states he does not have feeling from the knees down due to his diabetic neuropathy. Denies any injury. Denies fevers or nausea or vomiting. She had appointment with podiatry today however is seen by his PCP first may requested he come to the ER for IV antibiotics. Pain Scale: 8 - Related Data Home Medications Medication Instructions Recorded Confirmed Atorvastatin Calcium [Lipitor] 20 mg PO HS 06/12/15 11/05/18 Canagliflozin [Invokana] 300 mg PO DAILY 06/12/15 11/05/18 Duloxetine HCl [Cymbalta] 60 mg PO DAILY 06/12/15 11/05/18 Levomefolate/B6/B12/Algal Oil 1 cap PO BID 06/12/15 11/05/18 [Metanx Capsule] Metformin HCl [Glucophage] 1,000 mg PO BID 06/12/15 11/05/18 Pioglitazone [Actos] 45 mg PO DAILY 06/12/15 11/05/18 Pregabalin [Lyrica] 150 mg PO TID 06/12/15 11/05/18 Saxagliptin HCl [Onglyza] 5 mg PO DAILY 06/12/15 11/05/18 Dulaglutide [Trulicity] 1.5 mg SQ FR 02/27/16 11/05/18 Glimepiride [Amaryl] 4 mg PO DAILY 07/02/18 11/05/18 traZODone [TraZODone] 50 mg PO HS PRN 07/02/18 11/05/18 Hydrochlorothiazide [Microzide] 12.5 mg PO DAILY 08/13/18 11/05/18 Acetaminophen [Arthritis Pain 650 mg PO BID 09/14/18 11/05/18 Relief] Albuterol Sulfate [Proair Hfa] 2 puff PO Q4-6H PRN 09/14/18 11/05/18 Diclofenac Sodium 1 appl TP DAILY PRN 09/14/18 11/05/18 Lisinopril [Zestril] 40 mg PO DAILY 09/14/18 11/05/18 Allergies Allergy/AdvReac Type Severity Reaction Status Date / Time liraglutide [From Victoza] Allergy Insomnia Verified 09/14/18 11:11 sitagliptin [From Januvia] AdvReac Weakness, Verified 09/14/18 11:11 Fatigue All systems ED: reviewed and negative except as stated. Review of Systems: As Per HPI Constitutional: Denies: fever, chills Cardiovascular: Denies: chest pain, palpitations Respiratory: Denies: cough, dyspnea, wheezes Gastrointestinal: Denies: abdominal pain, nausea, vomiting Integumentary: Reports: rash, lesions (Left toe ulcer) Neurological: Reports: numbness (Chronic of bilateral lower external race) Past Medical History - Past Medical History Attestation: Yes The following information was validated with the patient. Medical history: Reports: coronary artery disease, CVA, diabetes, hyperlipidem ia, hypertension Surgical history: Reports: other Psychiatric history: Reports: no psych history - Social History Smoking Status: Never smoker Smokeless Tobacco Status: No Alcohol use: Reports: none Drug use: Reports: none Physical Exam CONSTITUTIONAL: Well-appearing; well-nourished; A&O X 3, in no apparent distress HEAD: Normocephalic; atraumatic EYES: PERRL, no scleral icterus NOSE: The nose is normal in appearance without rhinorrhea NECK: No JVD or distended neck veins RESP: Normal chest excursion with respiration; breath sounds clear and equal bilaterally; no wheezes, rhonchi, or rales CARD: Regular rhythm, without murmurs, rub or gallop ABD: Non-distended; non-tender, soft, without rigidity, rebound or guarding,no pulsatile mass CHEST: No pain with palpation SKIN: Normal for age and race; warm and dry without diaphoresis ; no apparent lesions EXTREMITIES: Pulses are 2 plus and equal times 4 extremities, no peripheral edema or calf muscle pain. Loss of sensation below bilateral knees. Small 0.5x0.5cm ulcer to the plantar aspect of the left toe. Erythema and swelling of the entire first toe and mild edema of the left lower extremity. - General Limitations: no limitations General appearance: alert, in no apparent distress Course Course Narrative: Patient presenting for evaluation for infected left toe. He has had infection of a similar toe in the past when she required wound debridement. Following wound clinic. Patient underwent lab work including cultures, lactic as well as basic labs and a wound culture was also sent. The x-ray film of the left toe shows no signs of osteomyelitis at this time. I started the patient on IV Zosyn as well as pain control and consult with the integrity manager on-call, Dr. Aggarwal and he agreed with the current plans and he will see the patient in consultation. Admission to the hospitalist. Vital Signs Temperature 97.7 F 11/05/18 11:58 Pulse Rate 96 11/05/18 11:58 Respiratory Rate 18 11/05/18 11:58 Blood Pressure 146/81 11/05/18 11:58 O2 Sat by Pulse Oximetry 99 11/05/18 11:58 Temperature 97.7 F 11/05/18 12:12 Pulse Rate 87 11/05/18 13:02 Respiratory Rate 16 11/05/18 13:02 Blood Pressure 151/62 11/05/18 13:02 O2 Sat by Pulse Oximetry 97 11/05/18 13:02 Oxygen Delivery Oxygen Delivery Room Air Medical Decision Making - Medical Records Medical records reviewed: Yes I reviewed the patient's medical records. - Lab Data Lab results reviewed: Yes I reviewed the patient's lab results. Result diagrams: 11/05/18 13:39 11/05/18 13:39 Lab Results 11/05/18 11/05/18 11/05/18 Range/Units 13:39 13:39 13:39 WBC 13.7 H (4.3-11.1) K/mcL RBC 4.57 (4.19-5.50) M/mcL Hgb 12.7 L (12.9-16.9) g/dL Hct 39.8 (37.5-50.1) % MCV 87.1 (83.0-100.0) fL MCH 27.8 L (28.0-33.3) pg MCHC 31.9 (31.6-35.5) g/dL RDW 14.4 (11.5-14.5) % Plt Count 156 (140-400) K/mcL MPV 10.1 (9.4-12.4) fL Immature Gran % 0.4 (0-4) % Seg Neutrophils % 77.6 % Lymphocytes % 11.5 % Monocytes % 8.0 % Eosinophils % 2.3 % Basophils % 0.2 % Neutrophils # 10.6 H (1.6-8.9) K/mcL Lymphocytes # 1.6 (0.6-4.6) K/mcL Monocytes # 1.1 (0.0-1.3) K/mcL Eosinophils # 0.3 (0.0-0.6) K/mcL Basophils # 0.0 (0.0-0.2) K/mcL ESR 53 H (0-10) mm/hr Sodium 130 L (136-145) mEq/L Potassium 4.2 (3.5-5.1) mEq/L Chloride 95 L (98-107) mEq/L Carbon Dioxide 27 (23-29) mEq/L BUN 21 H (6-20) mg/dL Creatinine 1.07 (0.70-1.30) mg/dL Est GFR ( Amer) > 60 (> 60) Est GFR (Non-Af Amer) > 60 (> 60) BUN/Creatinine Ratio 20 (6-26) Glucose 343 H (70-105) mg/dL Calculated Osmolality 287 (280-300) Lactic Acid (0.5-2.2) mmol/L Calcium 9.7 (8.6-10.3) mg/dL C-Reactive Protein 76 H (Less than 10) mg/L 11/05/18 Range/Units 13:39 WBC (4.3-11.1) K/mcL RBC (4.19-5.50) M/mcL Hgb (12.9-16.9) g/dL Hct (37.5-50.1) % MCV (83.0-100.0) fL MCH (28.0-33.3) pg MCHC (31.6-35.5) g/dL RDW (11.5-14.5) % Plt Count (140-400) K/mcL MPV (9.4-12.4) fL Immature Gran % (0-4) % Seg Neutrophils % % Lymphocytes % % Monocytes % % Eosinophils % % Basophils % % Neutrophils # (1.6-8.9) K/mcL Lymphocytes # (0.6-4.6) K/mcL Monocytes # (0.0-1.3) K/mcL Eosinophils # (0.0-0.6) K/mcL Basophils # (0.0-0.2) K/mcL ESR (0-10) mm/hr Sodium (136-145) mEq/L Potassium (3.5-5.1) mEq/L Chloride (98-107) mEq/L Carbon Dioxide (23-29) mEq/L BUN (6-20) mg/dL Creatinine (0.70-1.30) mg/dL Est GFR ( Amer) (> 60) Est GFR (Non-Af Amer) (> 60) BUN/Creatinine Ratio (6-26) Glucose (70-105) mg/dL Calculated Osmolality (280-300) Lactic Acid 1.8 (0.5-2.2) mmol/L Calcium (8.6-10.3) mg/dL C-Reactive Protein (Less than 10) mg/L - Radiology Data Radiology results reviewed: Yes I reviewed the patient's radiology results. Toe X-Ray 11/05/18 13:16 IMPRESSION: No evidence of osteomyelitis D/ / Jordan Reyez MD / Jordan Reyez MD Interpreting Provider: Jordan Reyez MD Attestation Statement - Attestation Attestation: I examined this patient and my medical decision-making was reviewed with the Resident Physician. I agree with the documented findings, disposition and treatment plan as described except to the extent set forth below. Patient does have evidence of a diabetic toe ulceration noted to the left great toe. The patient has erythema surrounding the toe, some swelling noted. The patient does have elevated white count. The patient cannot entirely exclude ostial myelitis of the great toe. The patient is going to be admitted for further IV antibiotics, she is not septic in the emergency room. Patient was started on IV antibiotics and will be admitted to the hospitalist.
[2018-11-05] MEDS ORDERED: Morphine Sulfate 2 MG/ML SYRINGE IVP ONE (14:33)
--- NOTE | 2018-11-05 16:41 | Internal Med History&Physical ---
Date of Encounter: 11/05/18 Time of Encounter: 16:34 Internal Medicine - H&P: HPI Chief complaint: Left foot pain, ulcer, swelling and redness Admitted From: Home Plans for Post Hospital Care: Home History of present illness: Mr. Richey is a 42 year old male with past medical history of diabetes, hypertension, diabetic neuropathy, CVA presented to the emergency room with complaint of left big toe pain, swelling, and redness and ulcer. Patient reports that he has been dealing with this left total issues since beginning of this year. Patient has a left toe incision and drainage procedure done 4-5 months ago. Patient reports since last 3 days ago he noticed that the left toe has been increasingly getting swollen. He also notices redness. He also noted ulcer and wound on the plantar aspect of the left toe. He reports because of diabetic neuropathy he usually do not feel much pain. He is able to move his t oe. He denied any fever and chills. He denied any nausea, vomiting, abdominal pain, and diarrhea. Upon initial presentation at emergency room patient's WBC was elevated at 13.7. Lactic acid was within normal limits at 1.8. CRP was elevated at 76. Left foot x-ray was done which revealed Soft tissue swelling of the 1st digit with an ulcer on the plantar surface. No evidence of osteomyelitis was seen on x-ray. Patient was given 1 dose of Zosyn antibiotic in the emergency room. Podiatry consult was placed. Past Med Surg Social Fam HX - Past Medical History Medical history: CVA, diabetes, hyperlipidemia, hypertension Additional medical history: no def from stroke Psychiatric history: no psych history - Past Surgical History Surgical History: other Additional surgical history: laser vision stim implant, spinal stimulator, left big toe I&D - Social History Smoking Status: Never smoker Smokeless Tobacco Status: No Alcohol use: none Drug use: none - Family History Father Family Member Ethnicity: Non- Living Status: Hx Family Cardiac Disorders: Yes Hx Family Respiratory Disorders: No Hx Family Cancer: Yes Hx Family GI Disorders: No Hx Family Endocrine Disorder: Yes Hx Family Neuromuscular Disorders: No Hx Family Neurologic Disorders: No Hx Family HEENT Disorders: No Hx Family Autoimmune Disorders: Yes Brother Living Status: Still Living Internal Medicine - H&P: Meds Atorvastatin Calcium [Lipitor] 20 mg PO HS 06/12/15 [History] Canagliflozin [Invokana] 300 mg PO DAILY 06/12/15 [History] Duloxetine HCl [Cymbalta] 60 mg PO DAILY 06/12/15 [History] Levomefolate/B6/B12/Algal Oil [Metanx Capsule] 1 cap PO BID 06/12/15 [History] Metformin HCl [Glucophage] 1,000 mg PO BID 06/12/15 [History] Pioglitazone [Actos] 45 mg PO DAILY 06/12/15 [History] Pregabalin [Lyrica] 150 mg PO TID 06/12/15 [History] Saxagliptin HCl [Onglyza] 5 mg PO DAILY 06/12/15 [History] Dulaglutide [Trulicity] 1.5 mg SQ FR 02/27/16 [History] Glimepiride [Amaryl] 4 mg PO DAILY 07/02/18 [History] traZODone [TraZODone] 50 mg PO HS PRN 07/02/18 [History] Hydrochlorothiazide [Microzide] 12.5 mg PO DAILY 08/13/18 [History] Acetaminophen [Arthritis Pain Relief] 650 mg PO BID 09/14/18 [History] Albuterol Sulfate [Proair Hfa] 2 puff PO Q4-6H PRN 09/14/18 [History] Diclofenac Sodium 1 appl TP DAILY PRN 09/14/18 [History] Lisinopril [Zestril] 40 mg PO DAILY 09/14/18 [History] Allergy/AdvReac Type Severity Reaction Status Date / Time liraglutide [From Victoza] Allergy Insomnia Verified 09/14/18 11:11 sitagliptin [From Januvia] AdvReac Weakness, Verified 09/14/18 11:11 Fatigue All Systems PM: A 10-system review of systems was performed and is negative for pertinent findings except as documented above in the HPI. - Constitutional Vitals: Temp Pulse Resp BP Pulse Ox 97.7 F 74 16 128/64 97 11/05/18 12:12 11/05/18 15:46 11/05/18 15:46 11/05/18 15:46 11/05/18 15:46 General appearance: Present: cooperative, A&O X 3 Exam: General: A & O 3, In no acute distress Eyes: No scleral icterus, HENNT: PERRLA. Head atraumatic and makes supple CVS S1 and S2 regular, no murmur RS: Clear to air entry bilaterally, no wheeze, no crackles Abdomen: Soft and nontender. Bowel sounds normal 4 Extremities: No cyanosis, clubbing, and edema SKin: Erythema noted on the left great toe. Ulcer 1 cm in size at the plantar aspect of the left great toe. Neurology: Cranial normal. Motor strength 5/5 bilaterally. Sensation intact Internal Med - H&P Results - Labs CBC & Chem 7: 11/05/18 13:39 11/05/18 13:39 Labs: Short CBC 11/05/18 Range/Units 13:39 WBC 13.7 H (4.3-11.1) K/mcL Hgb 12.7 L (12.9-16.9) g/dL Hct 39.8 (37.5-50.1) % Plt Count 156 (140-400) K/mcL Neutrophils # 10.6 H (1.6-8.9) K/mcL BMP 11/05/18 13:39 Sodium 130 L Potassium 4.2 Chloride 95 L Carbon Dioxide 27 BUN 21 H Creatinine 1.07 Glucose 343 H Calcium 9.7 - Impressions ITS Impressions Toe X-Ray 11/05/18 13:16 IMPRESSION: No evidence of osteomyelitis D/ / Jordan Reyez MD / Jordan Reyez MD Interpreting Provider: Jordan Reyez MD - Assessment and Plan (1) Cellulitis, toe Current Visit: Yes Status: Acute Assessment and plan: Patient presents to the emergency department with complaint of left great toe swelling, redness, and ulcer which has been getting worse for possible 3 days. Patient reports he has been dealing with this left great toe box 8 months. Patient has a incision and drainage done 3-4 months ago. Patient reports 2 days ago his left toe got increasingly red, and swollen. Patient has a history of diabetes and severe diabetic neuropathy. Patient did not feel much pain. Upon initial presentation at the emergency department patient has elevated white count, elevated CRP and normal lactic acid. Vitals were within normal limits. - IV hydration - IV vancomycin and IV Zosynpharmacy to dose - IV pain control. - We will follow wound culture and blood culture. - Podiatry on consult. Appreciate podiatry recommendation. Qualifiers: Laterality: left Qualified Code(s): L03.032 - Cellulitis of left toe (2) Toe ulcer due to DM Current Visit: Yes Status: Acute Assessment and plan: Management as above Qualifiers: Diabetes mellitus type: type 2 Laterality: left Non-pressure ulcer stage: with fat layer exposed Qualified Code(s): E11.621 - Type 2 diabetes mellitus with foot ulcer; L97.522 - Non-pressure chronic ulcer of other part of left foot with fat layer exposed (3) Diabetes mellitus type 2 in obese Current Visit: Yes Status: Acute Assessment and plan: Patient takes trulicity and newer antidiabetic medication at home. We will place patient on basal and bolus insulin regimen while in the hospital. Levemir 20 units at bedtime. Moderate dose insulin sliding scale. (4) DM neuropathy, type II diabetes mellitus Current Visit: Yes Status: Acute Assessment and plan: Continue home Lyrica and Cymbalta. Qualifiers: Diabetes mellitus mcfp insulin use: without terminal makeup operator use Qualified Code(s): E11.40 - Type 2 diabetes mellitus with diabetic neuropathy, unspecified (5) HLD (hyperlipidemia) Current Visit: No Status: Chronic Assessment and plan: Continue home statin Qualifiers: Hyperlipidemia type: unspecified Qualified Code(s): E78.5 - Hyperlipidemia, unspecified (6) Essential (primary) hypertension Current Visit: Yes Status: Acute Assessment and plan: Continue lisinopril (7) Morbid obesity with BMI of 40.0-44.9, adult Current Visit: No Status: Chronic Assessment and plan: Diabetic diet. Advised on diet modification and exercise. (8) DVT prophylaxis Current Visit: Yes Status: Acute Assessment and plan: Subcutaneous heparin - Time Spent With Patient Total time spent is greater than 50% in coordination of care (as documented) at patient's floor/unit and/or counseling patient: Greater than 35 minutes
[2018-11-05] MEDS ORDERED: Ondansetron 4 MG/2 ML VIAL IVP PRN (16:45)
[2018-11-05] MEDS ORDERED: Naloxone 0.4 MG/ML INJ IVP PRN (16:45)
[2018-11-05] MEDS: 0.9 % Sodium Chloride 1,000 ML IVC SCH (18:42)
[2018-11-05] MEDS: *HR* Heparin 5,000 UNIT/ML VIAL SQ SCH (18:47)
[2018-11-05] MEDS: Insulin LISPRO 300 UNITS/3 ML VIAL SQ SCH (18:50)
[2018-11-05] MEDS: Pregabalin 75 MG CAPSULE PO SCH (20:43)
[2018-11-05] MEDS: Morphine Sulfate 2 MG/ML SYRINGE IVP PRN (20:45)
[2018-11-05] MEDS: Insulin DETEMIR 100 UNIT/ML X5UNITS SQ SCH (22:31)
[2018-11-06] MEDS: Piperacillin/Tazobactam 3.375 GM in 0.9 % Sodium Chloride Mini Bag 100 ML IVPB SCH ×4 (01:14→23:32)
[2018-11-06 04:22] LABS: Basophils % 0.4 %; Eosinophils # 0.4 K/mcL (0.0-0.6); Eosinophils % 3.6 %; Hematocrit 38.3 % (37.5-50.1); Hemoglobin 12.4 g/dL (12.9-16.9); Immature Granulocytes % 0.6 % (0-4); Lymphocytes # 1.6 K/mcL (0.6-4.6); Lymphocytes % 15.6 %; Mean Corpuscular HGB Conc 32.4 g/dL (31.6-35.5); Mean Corpuscular Hemoglobin 28.2 pg (28.0-33.3); Mean Corpuscular Volume 87.2 fL (83.0-100.0); Mean Platelet Volume 9.9 fL (9.4-12.4); Monocytes # 0.9 K/mcL (0.0-1.3); Monocytes % 9.1 %; Platelet Count 147 K/mcL (140-400); Red Blood Count 4.39 M/mcL (4.19-5.50); Red Cell Distribution Width 14.2 % (11.5-14.5); Segmented Neutrophils % 70.7 %; White Blood Count 9.9 K/mcL (4.3-11.1)
[2018-11-06 04:42] LABS: BUN/Creatinine Ratio 17 (6-26); Blood Urea Nitrogen 17 mg/dL (6-20); Calcium 9.1 mg/dL (8.6-10.3); Carbon Dioxide 27 mEq/L (23-29); Chloride 99 mEq/L (98-107); Glucose 157 mg/dL (70-105); Osmolality,Calculated 283 (280-300); Potassium 4.3 mEq/L (3.5-5.1); Sodium 134 mEq/L (136-145); eGFR For African Americans > 60 (> 60); eGFR For Non-African Americans > 60 (> 60)
[2018-11-06] MEDS: 0.9 % Sodium Chloride 1,000 ML IVC SCH (06:21)
[2018-11-06] MEDS: *HR* Heparin 5,000 UNIT/ML VIAL SQ SCH ×2 (06:29→16:46)
[2018-11-06] MEDS: Pregabalin 75 MG CAPSULE PO SCH ×3 (07:48→20:07)
[2018-11-06] MEDS: Insulin LISPRO 300 UNITS/3 ML VIAL SQ SCH ×3 (07:48→16:46)
[2018-11-06] MEDS: Morphine Sulfate 2 MG/ML SYRINGE IVP PRN (10:36)
--- NOTE | 2018-11-06 11:12 | Internal Med Progress Note ---
Hospitalist Progress Note - Encounter Date of Encounter: 11/06/18 Time of Encounter: 11:08 - Subjective Interval History: She was seen and examined bedside today. Patient has a dressing placed in the foot. Patient reports some mild to minimal pain. Denied any fever and chills. Denies any acute issues and concerns overnight. - Exam Vitals: Temp Pulse Resp BP Pulse Ox 97.8 F 78 18 118/67 96 11/06/18 07:21 11/06/18 07:21 11/06/18 07:21 11/06/18 07:21 11/06/18 07:21 Exam: General: A & O 3, In no acute distress Eyes: No scleral icterus, HENNT: PERRLA. Head atraumatic and makes supple CVS S1 and S2 regular, no murmur RS: Clear to air entry bilaterally, no wheeze, no crackles Abdomen: Soft and nontender. Bowel sounds normal 4 Extremities: No cyanosis, clubbing, and edema Skin: Erythema noted on the left great toe. Ulcer 1 cm in size at the plantar aspect of the left great toe. Dressing was cahnged Neurology: Cranial normal. Motor strength 5/5 bilaterally. Sensation intact - Assessment and Plan (1) Cellulitis, toe Current Visit: Yes Status: Acute Assessment and Plan: Patient was admitted yesterday for left foot cellulitis and left great toe ulcer on the plantar aspect. Patient has a history of diabetes. Patient was placed on IV antibiotics. Podiatry CONSULT. WE WILL FOLLOW UP ON PODIATRY RECOMMENDATION TODAY. - IV hydration - IV vancomycin and IV Zosynpharmacy to dose - IV pain control. - We will follow wound culture and blood culture. (2) Toe ulcer due to DM Current Visit: Yes Status: Acute Assessment and Plan: Management as above (3) Diabetes mellitus type 2 in obese Current Visit: Yes Status: Acute Assessment and Plan: Patient takes trulicity and newer antidiabetic medication at home. We will place patient on basal and bolus insulin regimen while in the hospital. Levemir 20 units at bedtime. Moderate dose insulin sliding scale. (4) DM neuropathy, type II diabetes mellitus Current Visit: Yes Status: Acute Assessment and Plan: Continue home Lyrica and Cymbalta. (5) HLD (hyperlipidemia) Current Visit: No Status: Chronic Assessment and Plan: Continue home statin (6) Essential (primary) hypertension Current Visit: Yes Status: Acute Assessment and Plan: Continue lisinopril (7) Morbid obesity with BMI of 40.0-44.9, adult Current Visit: No Status: Chronic Assessment and Plan: Diabetic diet. Advised on diet modification and exercise. (8) DVT prophylaxis Current Visit: Yes Status: Acute Assessment and Plan: Subcutaneous heparin - Time Spent with Patient Total time spent is greater than 50% in coordination of care (as documented) at patient's floor/unit and/or counseling patient: 25 - 35 minutes Plan of Care Discussed with: patient Internal Medicine: Result - Labs CBC & Chem 7: 11/06/18 03:40 11/06/18 03:40 Labs: Short CBC 11/05/18 11/06/18 Range/Units 13:39 03:40 WBC 13.7 H 9.9 (4.3-11.1) K/mcL Hgb 12.7 L 12.4 L (12.9-16.9) g/dL Hct 39.8 38.3 (37.5-50.1) % Plt Count 156 147 (140-400) K/mcL Neutrophils # 10.6 H 7.0 (1.6-8.9) K/mcL BMP 11/05/18 11/06/18 13:39 03:40 Sodium 130 L 134 L Potassium 4.2 4.3 Chloride 95 L 99 Carbon Dioxide 27 27 BUN 21 H 17 Creatinine 1.07 1.01 Glucose 343 H 157 H Calcium 9.7 9.1 - Impressions Impressions Toe X-Ray 11/05/18 13:16 IMPRESSION: No evidence of osteomyelitis D/ / Jordan Reyez MD / Jordan Reyez MD Interpreting Provider: Jordan Reyez MD Consult Discharge Plan - Plan Referrals: Jesus Manuel Khan DO [Primary Care Provider] - (1) Cellulitis, toe Qualifiers: Laterality: left Qualified Code(s): L03.032 - Cellulitis of left toe (2) Toe ulcer due to DM Qualifiers: Diabetes mellitus type: type 2 Laterality: left Non-pressure ulcer stage: with fat layer exposed Qualified Code(s): E11.621 - Type 2 diabetes mellitus with foot ulcer; L97.522 - Non-pressure chronic ulcer of other part of left foot with fat layer exposed (4) DM neuropathy, type II diabetes mellitus Qualifiers: Diabetes mellitus usp insulin use: without usp use Qualified Code(s): E11.40 - Type 2 diabetes mellitus with diabetic neuropathy, unspecified (5) HLD (hyperlipidemia) Qualifiers: Hyperlipidemia type: unspecified Qualified Code(s): E78.5 - Hyperlipidemia, unspecified
--- NOTE | 2018-11-06 11:38 | Podiatry Consult Note ---
Date of Encounter: 11/06/18 Time of Encounter: 11:38 Assessment and Plan (1) Abscess of left great toe Current visit: Yes Status: Acute Assessment: Hylton grade II ulceration to left hallux with phlegmon medially Purulent drainage noted Erythema and edema noted to left hallux WBC 13.7 upon admission, 9.9 today, afebrile ESR 53, CRP 76 Wound cultures pending XR negative for OM Plan: Bedside debridement completed, see below NPO now Will plan for OR tonight for debridement, this will be an add on case Local wound care, see below HGB A1C ordered Anaerobic cultures obtained, nursing to send to lab Right foot xray ordered r/o fracture Verbal consent obtained timeout performed. Patient placed in recumbent position. Left foot and ankle prepped and draped usual manner. Under sterile technique and using sterile instrumentation surgical excisional wound debridement was carried out with #15 scalpel blade to remove all devitalized tissue of the left hallux wound. Bleeding controlled with dry dressing. Debridement was carried down to the subcutaneous tissue. Cleansed with 0.9 NS Painted left hallux with betadine, covered ulceration and left medial hallux with adaptic, 4x4 dry gauze, and kerlix. Secured with medipore tape (2) Cellulitis, toe Current visit: Yes Status: Acute Qualifiers: Laterality: left Qualified Code(s): L03.032 - Cellulitis of left toe (3) Toe ulcer due to DM Current visit: Yes Status: Chronic Qualifiers: Diabetes mellitus type: type 2 Laterality: left Non-pressure ulcer stage: with fat layer exposed Qualified Code(s): E11.621 - Type 2 diabetes mellitus with foot ulcer; L97.522 - Non-pressure chronic ulcer of other part of left foot with fat layer exposed (4) Left foot pain Current visit: Yes Status: Acute History of Present Illness HPI: Mr. Richey is a 42 year old male who presented to the ER for left great toe pain, erythema, and edema. Patient is known to the podiatry group and follows with Dr. Aggarwal. [facility] of CVA, DM II, neuropathy, diabetic foot ulcer, HLD, and HTN. present during examination. Briefly Mr. Richey is a 42-year-old male who presented to the ER for left great toe pain. Patient reports chronic history of diabetic foot ulcer which has been healed for over a month. Patient reports over the last week he began to notice erythema and edema to left great toe. Denies any drainage and shoe or on sock. Patient also reports dropping dresser on right foot. Reports pain to digits #2, #3 and is concerned it is broken. Denies any fevers, chills, nausea, vomiting, or diarrhea. Denies any calf pain, chest pain, or shortness of breath. Discussed possible surgical intervention. Patient agreeable. No other questions or concerns at this time. Past Med Surg Social Fam HX - Past Medical History Medical history: CVA, diabetes, hyperlipidemia, hypertension Additional medical history: no def from stroke Psychiatric history: no psych history - Past Surgical History Surgical History: other Additional surgical history: laser vision stim implant, spinal stimulator, left big toe I&D - Social History Smoking Status: Never smoker Smokeless Tobacco Status: No Alcohol use: none Drug use: none - Family History Father Family Member Ethnicity: Non- Living Status: Hx Family Cardiac Disorders: Yes Hx Family Respiratory Disorders: No Hx Family Cancer: Yes Hx Family GI Disorders: No Hx Family Endocrine Disorder: Yes Hx Family Neuromuscular Disorders: No Hx Family Neurologic Disorders: No Hx Family HEENT Disorders: No Hx Family Autoimmune Disorders: Yes Brother Living Status: Still Living Medications and Allergies Atorvastatin Calcium [Lipitor] 20 mg PO HS 06/12/15 [History] Canagliflozin [Invokana] 300 mg PO DAILY 06/12/15 [History] Duloxetine HCl [Cymbalta] 60 mg PO DAILY 06/12/15 [History] Levomefolate/B6/B12/Algal Oil [Metanx Capsule] 1 cap PO BID 06/12/15 [History] Pioglitazone [Actos] 45 mg PO DAILY 06/12/15 [History] Pregabalin [Lyrica] 150 mg PO TID 06/12/15 [History] Saxagliptin HCl [Onglyza] 5 mg PO DAILY 06/12/15 [History] Dulaglutide [Trulicity] 1.5 mg SQ FR 02/27/16 [History] Glimepiride [Amaryl] 8 mg PO DAILY 07/02/18 [History] traZODone [TraZODone] 50 mg PO HS PRN 07/02/18 [History] Hydrochlorothiazide [Microzide] 12.5 mg PO DAILY 08/13/18 [History] Acetaminophen [Arthritis Pain Relief] 650 mg PO BID 09/14/18 [History] Albuterol Sulfate [Proair Hfa] 2 puff PO Q4-6H PRN 09/14/18 [History] Diclofenac Sodium 1 appl TP DAILY PRN 09/14/18 [History] Lisinopril [Zestril] 40 mg PO DAILY 09/14/18 [History] Metformin HCl [Glucophage Xr] 2,000 mg PO QAM 11/06/18 [History] Allergy/AdvReac Type Severity Reaction Status Date / Time liraglutide [From Victoza] Allergy Insomnia Verified 09/14/18 11:11 sitagliptin [From Januvia] AdvReac Weakness, Verified 09/14/18 11:11 Fatigue All Systems Reviewed: The remainder of the systems were reviewed and are negative - Constitutional Constitutional: no fever(s) - Cardiovascular Cardiovascular: pedal edema, other (pedal ulcer), no chest pain - Respiratory Respiratory: no dyspnea - Musculoskeletal Musculoskeletal: numbness, tingling Physical Exam - Constitutional Vitals: Temp Pulse Resp BP Pulse Ox 98.2 F 80 18 110/63 94 11/06/18 11:14 11/06/18 11:14 11/06/18 11:14 11/06/18 11:14 11/06/18 11:14 Exam: Constitiutional: Alert and oriented x 3. Well nourished. No acute distress noted Vascular: 2/4 DP/PT LLE, CFT <3 sec to all digits, warm to warm from tibia to toes LLE, no calf pain with squeeze LLE Neurologic: Absent sensation to touch, normal plantar response Dermatologic: Hylton grade II ulceration with phlegmon left hallux, purulent drainage noted, erythema and edema noted to left hallux, does not extend into the forefoot, ecchymosis noted to right foot digits #2,# 3, patient reports pain with palpation Musculoskeletal: 5/5 muscle strength and normal tone BLE, Results - Labs Result Diagrams: 11/06/18 03:40 11/06/18 03:40 Labs: Abnormal lab results WBC 13.7 K/mcL (4.3-11.1) H 11/05/18 13:39 Hgb 12.4 g/dL (12.9-16.9) L 11/06/18 03:40 MCH 27.8 pg (28.0-33.3) L 11/05/18 13:39 Neutrophils # 10.6 K/mcL (1.6-8.9) H 11/05/18 13:39 ESR 53 mm/hr (0-10) H 11/05/18 13:39 Sodium 134 mEq/L (136-145) L 11/06/18 03:40 Chloride 95 mEq/L (98-107) L 11/05/18 13:39 BUN 21 mg/dL (6-20) H 11/05/18 13:39 Glucose 157 mg/dL (70-105) H 11/06/18 03:40 C-Reactive Protein 76 mg/L (Less than 10) H 11/05/18 13:39 H & H 11/05/18 11/06/18 Range/Units 13:39 03:40 Hgb 12.7 L 12.4 L (12.9-16.9) g/dL Hct 39.8 38.3 (37.5-50.1) % All other labs normal. Consult Discharge Plan - Plan Referrals: Jesus Manuel Khan DO [Primary Care Provider] -
[2018-11-06 13:40] LABS: Estimated Average Glucose 200 mg/dl
[2018-11-06] MEDS ORDERED: traZODone 50 MG TABLET PO PRN (14:39)
[2018-11-06] MEDS: Insulin DETEMIR 100 UNIT/ML X5UNITS SQ SCH (20:07)
[2018-11-07] MEDS: *HR* Heparin 5,000 UNIT/ML VIAL SQ SCH ×2 (04:25→17:30)
[2018-11-07 07:35] LABS: White Blood Count 8.1 K/mcL (4.3-11.1)
[2018-11-07 07:36] LABS: Basophils % 0.4 %; Eosinophils # 0.3 K/mcL (0.0-0.6); Eosinophils % 3.3 %; Hematocrit 36.5 % (37.5-50.1); Hemoglobin 11.9 g/dL (12.9-16.9); Immature Granulocytes % 0.9 % (0-4); Lymphocytes # 1.6 K/mcL (0.6-4.6); Lymphocytes % 19.6 %; Mean Corpuscular HGB Conc 32.6 g/dL (31.6-35.5); Mean Corpuscular Hemoglobin 28.4 pg (28.0-33.3); Mean Corpuscular Volume 87.1 fL (83.0-100.0); Mean Platelet Volume 9.8 fL (9.4-12.4); Monocytes # 0.7 K/mcL (0.0-1.3); Monocytes % 8.7 %; Neutrophils # 5.5 K/mcL (1.6-8.9); Platelet Count 144 K/mcL (140-400); Red Blood Count 4.19 M/mcL (4.19-5.50); Segmented Neutrophils % 67.1 %
[2018-11-07 07:54] LABS: BUN/Creatinine Ratio 19 (6-26); Blood Urea Nitrogen 19 mg/dL (6-20); Calcium 8.7 mg/dL (8.6-10.3); Carbon Dioxide 28 mEq/L (23-29); Chloride 98 mEq/L (98-107); Glucose 286 mg/dL (70-105); Osmolality,Calculated 293 (280-300); Potassium 4.3 mEq/L (3.5-5.1); Sodium 135 mEq/L (136-145); eGFR For African Americans > 60 (> 60); eGFR For Non-African Americans > 60 (> 60)
[2018-11-07] MEDS: Piperacillin/Tazobactam 3.375 GM in 0.9 % Sodium Chloride Mini Bag 100 ML IVPB SCH ×2 (08:38→17:30)
[2018-11-07] MEDS: Pregabalin 75 MG CAPSULE PO SCH ×2 (08:39→21:00)
--- NOTE | 2018-11-07 08:55 | Internal Med Progress Note ---
Hospitalist Progress Note - Encounter Date of Encounter: 11/07/18 Time of Encounter: 08:52 - Subjective Interval History: She was seen and examined at bedside today. Patient denied any left foot pain. Patient had a bedside debridement done yesterday of left foot ulcer. Patient is to undergo left foot I&D and debridement surgery today in the afternoon. Nothing by mouth after breakfast. - Exam Vitals: Temp Pulse Resp BP Pulse Ox 98.5 F 74 15 107/56 98 11/07/18 07:40 11/07/18 07:40 11/07/18 07:40 11/07/18 07:40 11/07/18 07:40 Exam: General: A & O 3, In no acute distress Eyes: No scleral icterus, HENNT: PERRLA. Head atraumatic and makes supple CVS S1 and S2 regular, no murmur RS: Clear to air entry bilaterally, no wheeze, no crackles Abdomen: Soft and nontender. Bowel sounds normal 4 Extremities: No cyanosis, clubbing, and edema Skin: Status post bedside debridement. Dressing in place in the left foot. No soaking of dressing Neurology: Cranial normal. Motor strength 5/5 bilaterally. Sensation intact - Assessment and Plan (1) Cellulitis, toe Current Visit: Yes Status: Acute Assessment and Plan: Bedside debridement was done yesterday. Patient to undergo incision and drainage and debridement in the OR today in the afternoon. - IV hydration - IV vancomycin and IV Zosynpharmacy to dose - IV pain control. - We will follow wound culture and blood culture. (2) Toe ulcer due to DM Current Visit: Yes Status: Chronic Assessment and Plan: Management as above (3) Diabetes mellitus type 2 in obese Current Visit: Yes Status: Acute Assessment and Plan: Patient takes trulicity and newer antidiabetic medication at home. We will place patient on basal and bolus insulin regimen while in the hospital. Levemir 20 units at bedtime. Moderate dose insulin sliding scale. (4) DM neuropathy, type II diabetes mellitus Current Visit: Yes Status: Acute Assessment and Plan: Continue home Lyrica and Cymbalta. (5) HLD (hyperlipidemia) Current Visit: No Status: Chronic Assessment and Plan: Continue home statin (6) Essential (primary) hypertension Current Visit: Yes Status: Acute Assessment and Plan: Continue lisinopril (7) Morbid obesity with BMI of 40.0-44.9, adult Current Visit: No Status: Chronic Assessment and Plan: Diabetic diet. Advised on diet modification and exercise. (8) DVT prophylaxis Current Visit: Yes Status: Acute Assessment and Plan: Subcutaneous heparin - Time Spent with Patient Total time spent is greater than 50% in coordination of care (as documented) at patient's floor/unit and/or counseling patient: 25 - 35 minutes Plan of Care Discussed with: patient Internal Medicine: Result - Labs CBC & Chem 7: 11/07/18 07:03 11/07/18 07:03 Labs: Short CBC 11/07/18 Range/Units 07:03 WBC 8.1 (4.3-11.1) K/mcL Hgb 11.9 L (12.9-16.9) g/dL Hct 36.5 L (37.5-50.1) % Plt Count 144 (140-400) K/mcL Neutrophils # 5.5 (1.6-8.9) K/mcL BMP 11/07/18 07:03 Sodium 135 L Potassium 4.3 Chloride 98 Carbon Dioxide 28 BUN 19 Creatinine 1.02 Glucose 286 H Calcium 8.7 - Impressions Impressions Foot X-Ray 11/06/18 16:01 IMPRESSION: No acute osseous abnormality right foot. Follow-up imaging recommended if pain persists or worsens following conservative management. D/ / Parviz Fournier / Parviz Fournier Interpreting Provider: Parviz Fournier Consult Discharge Plan - Plan Referrals: Jesus Manuel Khan DO [Primary Care Provider] - (1) Cellulitis, toe Qualifiers: Laterality: left Qualified Code(s): L03.032 - Cellulitis of left toe (2) Toe ulcer due to DM Qualifiers: Diabetes mellitus type: type 2 Laterality: left Non-pressure ulcer stage: with fat layer exposed Qualified Code(s): E11.621 - Type 2 diabetes mellitus with foot ulcer; L97.522 - Non-pressure chronic ulcer of other part of left foot with fat layer exposed (4) DM neuropathy, type II diabetes mellitus Qualifiers: Diabetes mellitus group home insulin use: without appliquer zigzag use Qualified Code(s): E11.40 - Type 2 diabetes mellitus with diabetic neuropathy, unspecified (5) HLD (hyperlipidemia) Qualifiers: Hyperlipidemia type: unspecified Qualified Code(s): E78.5 - Hyperlipidemia, unspecified
--- NOTE | 2018-11-07 10:08 | Anesthesia Evaluation PreOp ---
Date of Encounter: 11/07/18 Time of Encounter: 13:22 - Past History Planned Operation: I&D toe Cardiac History: HTN, Hyperlipidemia Pulmonary History: Denies Any Significant HX GARMENT MENDER History: CVA Other Medical History: Diabetes Type I, Other (diabeticneuopathy) Anesthesia History: No Prior Anesthetic Complications, Past Anesthesia (spinal stimulator, laser eyes, I&D toe, epididectomy) Alcohol Use: none Drug use: none Medications and Allergies Atorvastatin Calcium [Lipitor] 20 mg PO HS 06/12/15 [History] Canagliflozin [Invokana] 300 mg PO DAILY 06/12/15 [History] Duloxetine HCl [Cymbalta] 60 mg PO DAILY 06/12/15 [History] Levomefolate/B6/B12/Algal Oil [Metanx Capsule] 1 cap PO BID 06/12/15 [History] Pioglitazone [Actos] 45 mg PO DAILY 06/12/15 [History] Pregabalin [Lyrica] 150 mg PO TID 06/12/15 [History] Saxagliptin HCl [Onglyza] 5 mg PO DAILY 06/12/15 [History] Dulaglutide [Trulicity] 1.5 mg SQ FR 02/27/16 [History] Glimepiride [Amaryl] 8 mg PO DAILY 07/02/18 [History] traZODone [TraZODone] 50 mg PO HS PRN 07/02/18 [History] Hydrochlorothiazide [Microzide] 12.5 mg PO DAILY 08/13/18 [History] Acetaminophen [Arthritis Pain Relief] 650 mg PO BID 09/14/18 [History] Albuterol Sulfate [Proair Hfa] 2 puff PO Q4-6H PRN 09/14/18 [History] Diclofenac Sodium 1 appl TP DAILY PRN 09/14/18 [History] Lisinopril [Zestril] 40 mg PO DAILY 09/14/18 [History] Metformin HCl [Glucophage Xr] 2,000 mg PO QAM 11/06/18 [History] Allergy/AdvReac Type Severity Reaction Status Date / Time liraglutide [From Victoza] Allergy Insomnia Verified 09/14/18 11:11 sitagliptin [From Januvia] AdvReac Weakness, Verified 09/14/18 11:11 Fatigue - Meds/Allergy Pre-op Review Medications Reviewed: Yes Allergies Reviewed: Yes Beta Blockers on Current Med List: No Anesthesia Results - Labs 11/07/18 07:03 11/07/18 07:03 - Imaging EKG: report reviewed (SR left axis), image reviewed Anesthesia Exam Vital Signs/O2 Sat, Most Current Temp Pulse Resp BP Pulse Ox 98.5 F 74 15 107/56 98 11/07/18 07:40 11/07/18 07:40 11/07/18 07:40 11/07/18 07:40 11/07/18 07:40 - HEENT Pupil (Motor): Pupils equal, EOMI Mallampati: III Teeth: Normal Oral Opening: Greater than 3 - GARMENT MENDER LOC: Oriented GARMENT MENDER Motor: Normal RUE, Normal LUE, Normal RLE, Normal LLE, Normal Face GARMENT MENDER Sensory: Normal: RUE, LUE, Face, Deficit: RLE, LLE - Cardiac Rhythm: Regular Murmur: None JVD: No - Pulmonary Breath Sounds: bilateral Clear Respiratory Effort: Symmetrical Anesthesia Assess/Plan ASA Score: 3 Anesthetic Plan: General Monitoring Plan: Standard Monitors Recovery Plan: Other (floor)
[2018-11-07] MEDS: Insulin LISPRO 300 UNITS/3 ML VIAL SQ SCH ×2 (12:03→12:25)
[2018-11-07] MEDS ORDERED: *HR* Propofol 200 MG/20 ML VIAL IVP ONE (12:54)
[2018-11-07] MEDS ORDERED: Lidocaine -MPF 2% 2 ML VIAL ONE (12:55)
[2018-11-07] MEDS ORDERED: *HR* Rocuronium Bromide 50 MG/5 ML VIAL ONE (12:55)
[2018-11-07] MEDS ORDERED: *HR* FentaNYL (PF) 100 MCG/2 ML VIAL ONE (12:55)
[2018-11-07] MEDS ORDERED: *HR* Midazolam HCl 2 MG/2 ML VIAL ONE ×2 (12:55→13:00)
[2018-11-07] MEDS ORDERED: Ondansetron 4 MG/2 ML VIAL ONE (12:55)
[2018-11-07] MEDS ORDERED: Dexamethasone 4 MG/ML VIAL ONE (12:55)
[2018-11-07] MEDS ORDERED: *HR* Succinylcholine 200 MG/10 ML VIAL IVP ONE (12:55)
[2018-11-07] MEDS ORDERED: *HR* HYDROmorphone (PF) 1 MG/ML SYRINGE IVP PRN ×2 (13:24→15:01)
[2018-11-07] MEDS ORDERED: ROPIVACAINE/PF/NS 0.25% 1 EACH SYRINGE INTRAART ONE (13:24)
[2018-11-07] MEDS ORDERED: *HR* Meperidine 25 MG/ML SYRINGE IVP PRN ×2 (13:24→15:01)
[2018-11-07] MEDS ORDERED: *HR* OxyCODONE Immed Rel 5 MG TABLET PO PRN ×2 (13:24→15:01)
[2018-11-07] MEDS ORDERED: Propofol 500 MG/50 ML INFUS..BTL ONE (13:25)
[2018-11-07] MEDS ORDERED: Ringers Solution, Lactated 1,000 ML IVC SCH (13:30)
--- NOTE | 2018-11-07 14:29 | Orthopedic Operative Note ---
Date of procedure: 11/07/18 Pre-op diagnosis: Infection abscess ulcer left great toe Post-op diagnosis: same Procedure: 11/07/18 14:23 #1: Incision and drainage left great toe #2: Surgical wound bed preparation #3: Application of PuraPly antimicrobial wound matrix graft Implants: None Complications: None Anesthesia: MAC, local Local Anesthetics: 0.25% Sensorcaine HCL SubQ (cc), Other (Ropivacaine plain) Surgeon: Clem Aggarwal Was there an data assistant present: No Estimated blood loss (cc): 5 Tourniquet Time (Minutes): 0 Specimen: Cultures wound aerobic and anaerobic Condition: stable Disposition: PACU Procedure in Detail: 11/07/18 14:24 Detail summary of procedure: Patient brought to surgical suite. Sign in procedure performed. Patient transferred the surgical table and positioned properly safely securely. Left foot and leg elevated on a foam block. Ankle tourniquet applied but not employed. Left foot prepped with alcohol 3 times. Anesthetic timeout taken. Griffith block carried out without difficulty with local anesthetic. Left foot prepped and draped usual sterile manner. Surgical timeout taken. Ulceration was noted on the plantar aspect of the left great toe at the level of the IP joint proximally 0.9 cm x 0.9 cm x 0.4 cm deep. There is another wound abscess on the medial aspect of the toe with spontaneous purulent drainage/exudate. At that point a oblique incision was made from 1 fingerbreadth proximal from the dorsal medial aspect of the IP joint obliquely toward the plantar aspect just distal to the IP joint to join the ulceration. Purulent drainage was expressed and it was cultured immediately aerobe and anaerobe. All nonviable necrotic tissue was debrided down to the deep fascia. The ulcer was then debrided as well with a #15 scalpel blade by excisional methods. Surgical wound bed preparation was complete of the ulceration with a curet. The wound was then flushed with copious amounts sterile saline. Finding no debris wound was irrigated again. Several loose sutures of 3-0 Prolene for then used to repair the incision on the dorsal medial aspect of the toe. At that point a PuraPly graft 2 cm by 4 cm/ 8 cm antimicrobial wound matrix graft was applied with no waste. The graft was anchored with Steri-Strips. The wound was then dressed with Adaptic 4 x 4's Kerlix and compressive dressing. There is no active bleeding necessitated use of Bovie ligature. The wound was noted to bleed freely. Hemostasis was achieved with compression irrigation prior to closure. Capillary rebound time is less than 3 seconds to the great toe after application of the dressing. Patient was then sent to PACU in good condition with vital signs stable. Blood loss estimated 5 mL. No complications.
[2018-11-07] MEDS ORDERED: traZODone 50 MG TABLET PO PRN (15:01)
[2018-11-07] MEDS ORDERED: Naloxone 0.4 MG/ML INJ IVP PRN (15:01)
[2018-11-07] MEDS ORDERED: Ondansetron 4 MG/2 ML VIAL IVP PRN (15:01)
[2018-11-07] MEDS: Ringers Solution, Lactated 1,000 ML IVC SCH (15:30)
[2018-11-07] MEDS ORDERED: Insulin LISPRO 300 UNITS/3 ML VIAL SQ SCH (16:30)
[2018-11-07] MEDS ORDERED: Insulin DETEMIR 100 UNIT/ML X5UNITS SQ SCH (21:00)
[2018-11-08] MEDS: Piperacillin/Tazobactam 3.375 GM in 0.9 % Sodium Chloride Mini Bag 100 ML IVPB SCH ×3 (00:49→15:33)
[2018-11-08 03:26] LABS: Basophils % 0.4 %; Eosinophils # 0.1 K/mcL (0.0-0.6); Eosinophils % 1.3 %; Hematocrit 36.6 % (37.5-50.1); Lymphocytes # 1.5 K/mcL (0.6-4.6); Lymphocytes % 13.8 %; Mean Corpuscular HGB Conc 32.8 g/dL (31.6-35.5); Mean Corpuscular Hemoglobin 27.9 pg (28.0-33.3); Mean Corpuscular Volume 85.1 fL (83.0-100.0); Mean Platelet Volume 9.8 fL (9.4-12.4); Monocytes # 0.8 K/mcL (0.0-1.3); Monocytes % 7.6 %; Neutrophils # 8.1 K/mcL (1.6-8.9); Platelet Count 146 K/mcL (140-400); Red Cell Distribution Width 13.5 % (11.5-14.5); Segmented Neutrophils % 75.9 %; White Blood Count 10.7 K/mcL (4.3-11.1)
[2018-11-08 03:46] LABS: BUN/Creatinine Ratio 18 (6-26); Blood Urea Nitrogen 18 mg/dL (6-20); Calcium 9.1 mg/dL (8.6-10.3); Carbon Dioxide 30 mEq/L (23-29); Chloride 98 mEq/L (98-107); Glucose 287 mg/dL (70-105); Osmolality,Calculated 292 (280-300); Potassium 4.6 mEq/L (3.5-5.1); Sodium 135 mEq/L (136-145); eGFR For African Americans > 60 (> 60); eGFR For Non-African Americans > 60 (> 60)
[2018-11-08] MEDS: *HR* Heparin 5,000 UNIT/ML VIAL SQ SCH ×2 (05:19→17:47)
[2018-11-08] MEDS ORDERED: Insulin DETEMIR 100 UNIT/ML X5UNITS SQ STA (07:15)
[2018-11-08 07:29] VITALS: BP 121/61
[2018-11-08] MEDS: Pregabalin 75 MG CAPSULE PO SCH ×2 (08:17→15:31)
[2018-11-08] MEDS: Insulin LISPRO 300 UNITS/3 ML VIAL SQ SCH ×3 (08:19→17:10)
--- NOTE | 2018-11-08 08:42 | Discharge Summary ---
- NOTES TO OUTPATIENT PROVIDER Notes to Outpatient Provider: Patient was hospitalized for diabetes foot cellulitis and ulcer. Podiatry consult was placed. Patient status post debridement in the OR. Patient will be discharged on clindamycin for 10 days follow-up with podiatry clinic next week. Orders not resulted at time of discharge: Pending orders 11/05/18 13:39 Culture,Blood [BC] Stat 11/06/18 11:34 Culture,Anaerobic [RM] Routine 11/07/18 13:50 Culture,Anaerobic [RM] Routine Culture,Wound [RM] Routine Estimated PT Needs at Discharge: None Date of Encounter: 11/08/18 Time of Encounter: 08:37 - Discharge Diagnosis (1) Cellulitis, toe Priority: Primary Status: Acute Qualifiers: Laterality: left Qualified Code(s): L03.032 - Cellulitis of left toe (2) Toe ulcer due to DM Priority: Secondary Status: Chronic Qualifiers: Diabetes mellitus type: type 2 Laterality: left Non-pressure ulcer stage: with fat layer exposed Qualified Code(s): E11.621 - Type 2 diabetes mellitus with foot ulcer; L97.522 - Non-pressure chronic ulcer of other part of left foot with fat layer exposed (3) Diabetes mellitus type 2 in obese Priority: Secondary Status: Acute (4) DM neuropathy, type II diabetes mellitus Priority: Secondary Status: Acute Qualifiers: Diabetes mellitus halfway insulin use: without sciences dean use Qualified Code(s): E11.40 - Type 2 diabetes mellitus with diabetic neuropathy, unspecified (5) HLD (hyperlipidemia) Priority: Secondary Status: Chronic Qualifiers: Hyperlipidemia type: unspecified Qualified Code(s): E78.5 - Hyperlipidemia, unspecified (6) Essential (primary) hypertension Priority: Secondary Status: Acute (7) Morbid obesity with BMI of 40.0-44.9, adult Priority: Secondary Status: Chronic (8) DVT prophylaxis Priority: Secondary Status: Acute Hospital course: Mr. Richey is a 42 year old male was hospitalized for diabetes foot cellulitis and ulcer. Podiatry consult was placed. Patient status post debridement in the OR. Wound culture collected on October 2018 was sensitive to all antibiotics. An anaerobic culture pending. Patient will be discharged on clindamycin for 10 days follow-up with podiatry clinic next week. Follow-up with primary care provider in one week Discharge discussed with: patient, family, nurse, social work, wig sales consultant - Time Spent with Patient Total time spent providing and/or coordinating discharge services:35 Time spent: Greater than 30 minutes - Discharge Medications Prescriptions: New Clindamycin HCl [Cleocin HCl] 300 mg PO TID 10 Days #30 cap Continued Duloxetine HCl [Cymbalta] 60 mg PO DAILY Atorvastatin Calcium [Lipitor] 20 mg PO HS Pioglitazone [Actos] 45 mg PO DAILY Levomefolate/B6/B12/Algal Oil [Metanx Capsule] 1 cap PO BID Saxagliptin HCl [Onglyza] 5 mg PO DAILY Canagliflozin [Invokana] 300 mg PO DAILY Pregabalin [Lyrica] 150 mg PO TID Dulaglutide [Trulicity] 1.5 mg SQ FR Glimepiride [Amaryl] 8 mg PO DAILY traZODone [TraZODone] 50 mg PO HS PRN PRN Reason: Sleep Acetaminophen [Arthritis Pain Relief] 650 mg PO BID Albuterol Sulfate [Proair Hfa] 2 puff PO Q4-6H PRN PRN Reason: Shortness Of Breath Diclofenac Sodium 1 appl TP DAILY PRN PRN Reason: Pain Lisinopril [Zestril] 40 mg PO DAILY Metformin HCl [Glucophage Xr] 2,000 mg PO QAM Hydrochlorothiazide [Microzide] 12.5 mg PO DAILY Home Medications: Atorvastatin Calcium [Lipitor] 20 mg PO HS 06/12/15 [History] Canagliflozin [Invokana] 300 mg PO DAILY 06/12/15 [History] Duloxetine HCl [Cymbalta] 60 mg PO DAILY 06/12/15 [History] Levomefolate/B6/B12/Algal Oil [Metanx Capsule] 1 cap PO BID 06/12/15 [History] Pioglitazone [Actos] 45 mg PO DAILY 06/12/15 [History] Pregabalin [Lyrica] 150 mg PO TID 06/12/15 [History] Saxagliptin HCl [Onglyza] 5 mg PO DAILY 06/12/15 [History] Dulaglutide [Trulicity] 1.5 mg SQ FR 02/27/16 [History] Glimepiride [Amaryl] 8 mg PO DAILY 07/02/18 [History] traZODone [TraZODone] 50 mg PO HS PRN 07/02/18 [History] Hydrochlorothiazide [Microzide] 12.5 mg PO DAILY 08/13/18 [History] Acetaminophen [Arthritis Pain Relief] 650 mg PO BID 09/14/18 [History] Albuterol Sulfate [Proair Hfa] 2 puff PO Q4-6H PRN 09/14/18 [History] Diclofenac Sodium 1 appl TP DAILY PRN 09/14/18 [History] Lisinopril [Zestril] 40 mg PO DAILY 09/14/18 [History] Metformin HCl [Glucophage Xr] 2,000 mg PO QAM 11/06/18 [History] Clindamycin HCl [Cleocin HCl] 300 mg PO TID 10 Days #30 cap 11/08/18 [Rx] Allergies/Adverse Reactions: Allergy/AdvReac Type Severity Reaction Status Date / Time liraglutide [From Victoza] Allergy Insomnia Verified 09/14/18 11:11 sitagliptin [From Januvia] AdvReac Weakness, Verified 09/14/18 11:11 Fatigue Date of admission: 11/05/18 16:23 Primary care physician: Jesus Manuel Khan DO Consults: 11/05/18 14:33 Consult to Podiatry [CONS] Stat Consulting Provider: Podiatry [facility] Reason for Consult: toe infection Time Notified: 14:33 Call Completed: Yes Discharging clinician: Malcolm Burch - Constitutional Vitals: Temp Pulse Resp BP Pulse Ox 97.9 F 63 17 121/61 97 11/08/18 07:20 11/08/18 07:20 11/08/18 07:20 11/08/18 07:20 11/08/18 07:20 General appearance: Present: cooperative, A&O X 3 Exam: General: A & O 3, In no acute distress Eyes: No scleral icterus, HENNT: PERRLA. Head atraumatic and makes supple CVS S1 and S2 regular, no murmur RS: Clear to air entry bilaterally, no wheeze, no crackles Abdomen: Soft and nontender. Bowel sounds normal 4 Extremities: No cyanosis, clubbing, and edema Skin: Status post bedside debridement. Dressing in place in the left foot. No soaking of dressing Neurology: Cranial normal. Motor strength 5/5 bilaterally. Sensation intact - Patient Status Disposition: Home, Self-Care Condition: Good Functional capacity at discharge: uses cane/walker Overall status at discharge: patient is progressing back to baseline - Discharge Instructions Follow Up With: Jesus Manuel Khan DO [Primary Care Provider] - - Diet and Activity Activity: increase activity as tolerated Diet: diabetic diet
[2018-11-08] MEDS: Ringers Solution, Lactated 1,000 ML IVC SCH (15:38)
[2018-11-08] MEDS ORDERED: Aminoglycoside Consult 1 EACH MC ONE (18:01)
[2018-11-08] MEDS ORDERED: Insulin DETEMIR 100 UNIT/ML X5UNITS SQ SCH (21:00)
== END 2018-11-08 18:02 | disposition home or self-care (01) ==
LOC: 3ANU 11:51 → EMEROOARM 11:51 → SUATTDRO 16:23 → 3ANU 17:01
PROVIDERS: ADMIT Internal Medicine; ATTEND Family Medicine

== ENCOUNTER 2021-09-19 20:33 | Observation (INO) ==
[2021-09-19 21:08] LABS: Immature Granulocytes % 0.6 % (0-4); Mean Corpuscular Volume 85.1 fL (83.0-100.0)
[2021-09-19 21:10] LABS: Basophils % 0.5 %; Eosinophils # 0.2 K/mcL (0.0-0.6); Eosinophils % 2.8 %; Immature Platelets 3.1 % (1.1-6.1); Lymphocytes # 1.6 K/mcL (0.6-4.6); Lymphocytes % 24.7 %; Mean Corpuscular HGB Conc 34.1 g/dL (31.6-35.5); Mean Platelet Volume 10.1 fL (9.4-12.4); Monocytes # 0.5 K/mcL (0.0-1.3); Monocytes % 7.5 %; Neutrophils # 4.1 K/mcL (1.6-8.9); Platelet Count 114 K/mcL (140-400); Red Blood Count 4.82 M/mcL (4.19-5.50); Red Cell Distribution Width 13.9 % (11.5-14.5); Segmented Neutrophils % 63.9 %; White Blood Count 6.4 K/mcL (4.3-11.1)
[2021-09-19 21:33] LABS: Alanine Aminotransferase 30 Units/L (7-52); Albumin 3.7 g/dL (3.5-5.7); Albumin/Globulin Ratio 1.5 (1.1-2.2); Alkaline Phosphatase 102 Units/L (34-104); Aspartate Amino Transferase 30 Units/L (13-39); BUN/Creatinine Ratio 16 (6-26); Bilirubin,Total 0.4 mg/dL (0.3-1.0); Blood Urea Nitrogen 16 mg/dL (6-20); Calcium 8.9 mg/dL (8.6-10.3); Carbon Dioxide 26 mEq/L (23-29); Chloride 98 mEq/L (98-107); Globulin 2.4 g/dL (2.4-3.5); Glucose 399 mg/dL (70-105); Lipase 66 Units/L (11-82); Osmolality,Calculated 292 (280-300); Platelet Estimate Slight Decrease (Normal); Potassium 4.5 mEq/L (3.5-5.1); Sodium 132 mEq/L (136-145); Total Protein 6.1 g/dL (6.4-8.9); Troponin I < 0.03 ng/mL (< 0.04); eGFR For African Americans > 60 (> 60); eGFR For Non-African Americans > 60 (> 60)
[2021-09-20] MEDS ORDERED: Aspirin 325 MG TABLET PO ONE (00:17)
[2021-09-20] MEDS: Nitroglycerin 0.4 MG TAB.SUBL SL PRN ×6 (00:21→16:17)
[2021-09-20 00:25] LABS: Chol/HDL Ratio 10.4 (0-4.9); Cholesterol 290 mg/dL (< 200); HDL Cholesterol 28 mg/dL (40-59); Triglycerides 1317 mg/dL (< 150); Troponin I < 0.03 ng/mL (< 0.04)
[2021-09-20] MEDS ORDERED: Naloxone 0.4 MG/ML INJ IVP PRN (02:33)
[2021-09-20] MEDS ORDERED: Acetaminophen 325 MG TABLET PO PRN (02:33)
[2021-09-20] MEDS ORDERED: Ondansetron 4 MG/2 ML VIAL IVP PRN (02:33)
[2021-09-20] MEDS ORDERED: D5% in Water 1,000 ML IVC PRN ×2 (02:37→08:18)
[2021-09-20] MEDS ORDERED: *HR* Dextrose 50 % in Water (Syg) 50 ML SYRINGE IVP PRN ×5 (02:37→08:18)
[2021-09-20] MEDS ORDERED: Ipratropium/Albuterol Neb 3 ML IH PRN (02:37)
[2021-09-20] MEDS ORDERED: Dextrose Gel 15 GM/37.5 ML TUBE PO PRN ×4 (02:37→08:18)
[2021-09-20] MEDS ORDERED: Insulin LISPRO 300 UNITS/3 ML VIAL SUBQ SCH ×3 (02:45→21:00)
[2021-09-20] MEDS ORDERED: Insulin Regular, Human 100 UNIT/ML IV PRN (04:33)
[2021-09-20 05:58] LABS: Basophils % 0.3 %; Eosinophils # 0.2 K/mcL (0.0-0.6); Eosinophils % 3.2 %; Hematocrit 40.6 % (37.5-50.1); Hemoglobin 13.5 g/dL (12.9-16.9); Immature Granulocytes % 0.7 % (0-4); Lymphocytes # 1.7 K/mcL (0.6-4.6); Mean Corpuscular HGB Conc 33.3 g/dL (31.6-35.5); Mean Corpuscular Hemoglobin 27.9 pg (28.0-33.3); Mean Corpuscular Volume 83.9 fL (83.0-100.0); Mean Platelet Volume 10.2 fL (9.4-12.4); Monocytes # 0.5 K/mcL (0.0-1.3); Monocytes % 8.6 %; Neutrophils # 3.6 K/mcL (1.6-8.9); Platelet Count 102 K/mcL (140-400); Red Blood Count 4.84 M/mcL (4.19-5.50); Red Cell Distribution Width 13.7 % (11.5-14.5); Segmented Neutrophils % 59.2 %
[2021-09-20 06:03] LABS: INR 1.1; Prothrombin Time 11.7 Seconds (9.4-12.1)
[2021-09-20 06:20] LABS: Bilirubin,Urine Negative (Negative); Blood,Urine Negative (Negative); Clarity,Urine Clear (Clear); Color,Urine Colorless (Yellow); Glucose,Urine (UA) >=1000 mg/dL (Normal); Ketones,Urine Negative (Negative); Leukocyte Esterase,Urine Negative (Negative); Mucus,Urine Few per lpf (None-Few); Nitrite,Urine Negative (Negative); PH,Urine 6.5 pH Units (5.0-8.0); Protein,Urine Negative (Neg-Trace); RBC,Urine 0-3 per hpf (0-3); Specific Gravity,Urine 1.025 (1.010-1.025); Squamous Epithelial Cell,Urine Few per hpf (None-Few); Urobilinogen,Urine Normal (Normal); WBC,Urine 0-3 per hpf (0-3)
[2021-09-20 06:20] LABS: BUN/Creatinine Ratio 17 (6-26); Blood Urea Nitrogen 15 mg/dL (6-20); Calcium 9.2 mg/dL (8.6-10.3); Carbon Dioxide 28 mEq/L (23-29); Chloride 99 mEq/L (98-107); Glucose 309 mg/dL (70-105); Magnesium 1.7 mg/dL (1.6-2.6); Osmolality,Calculated 293 (280-300); Phosphorous 3.2 mg/dL (2.7-4.5); Sodium 135 mEq/L (136-145); eGFR For African Americans > 60 (> 60); eGFR For Non-African Americans > 60 (> 60)
[2021-09-20 06:25] LABS: Thyroid Stimulating Hormone 5.509 mcIU/mL (0.340-5.600)
[2021-09-20] MEDS ORDERED: Insulin Human Regular 100 UNIT in 0.9 % Sodium Chloride 99 ML IVC SCH (06:45)
[2021-09-20] MEDS ORDERED: D5% in Water 1,000 ML IVC SCH (06:45)
[2021-09-20 09:27] LABS: Cannabinoid Screen,Urine Positive ng/mL (Cutoff = 50)
[2021-09-20 09:28] LABS: Amphetamine Screen,Urine Negative ng/mL (Cutoff=1000); Barbiturate Screen,Urine Negative ng/mL (Cutoff=200); Benzodiazepines Screen,Urine Negative ng/mL (Cutoff=200); Cocaine Screen,Urine Negative ng/mL (Cutoff= 300); Opiate Screen,Urine Negative ng/mL (Cutoff=300); Phencyclidine Screen,Urine Negative ng/mL (Cutoff=25)
[2021-09-20] MEDS: lisinopriL 20 MG TABLET PO SCH (10:39)
[2021-09-20 10:41] LABS: Estimated Average Glucose 321 mg/dl; Hemoglobin A1C 12.8 %
[2021-09-20] MEDS ORDERED: *HR* Heparin 10,000 UNIT/10 ML VIAL ONE (14:09)
[2021-09-20] MEDS ORDERED: Heparin 1,000 UNITS/500 mL 500 ML ONE (14:09)
[2021-09-20] MEDS ORDERED: *HR* Midazolam HCl 2 MG/2 ML VIAL ONE (14:09)
[2021-09-20] MEDS ORDERED: 0.9 % Sodium Chloride 1,000 ML ONE (14:09)
[2021-09-20] MEDS ORDERED: Nitroglycerin 1,000 MCG/5 ML VIAL IV ONE (14:09)
[2021-09-20] MEDS ORDERED: *HR* FentaNYL (PF) 100 MCG/2 ML VIAL ONE (14:09)
[2021-09-20] MEDS ORDERED: Iopamidol - 370 200 ML INFUS..BTL ONE (14:09)
[2021-09-20] MEDS ORDERED: Tirofiban 12.5 MG/250ML 12.5 MG/250 ML BAG ONE (14:25)
[2021-09-20] MEDS: gemfibroziL 600 MG TABLET PO SCH (15:20)
[2021-09-20] MEDS ORDERED: lisinopriL 20 MG TABLET PO ONE (16:19)
[2021-09-20] MEDS: Isosorbide MONOnitrate (24 HR) 30 MG TAB.ER.24H PO SCH (16:49)
[2021-09-20] MEDS: Insulin LISPRO 300 UNITS/3 ML VIAL SUBQ SCH (16:49)
[2021-09-20] MEDS ORDERED: Insulin DETEMIR 100 UNIT/ML X5UNITS SUBQ SCH (21:00)
[2021-09-21 02:52] LABS: Basophils % 0.4 %; Eosinophils # 0.2 K/mcL (0.0-0.6); Eosinophils % 2.1 %; Hematocrit 39.2 % (37.5-50.1); Hemoglobin 13.1 g/dL (12.9-16.9); Immature Granulocytes % 0.5 % (0-4); Lymphocytes # 1.7 K/mcL (0.6-4.6); Lymphocytes % 22.2 %; Mean Corpuscular HGB Conc 33.4 g/dL (31.6-35.5); Mean Corpuscular Hemoglobin 28.3 pg (28.0-33.3); Mean Corpuscular Volume 84.7 fL (83.0-100.0); Mean Platelet Volume 10.2 fL (9.4-12.4); Monocytes # 0.6 K/mcL (0.0-1.3); Monocytes % 8.3 %; Neutrophils # 5.2 K/mcL (1.6-8.9); Platelet Count 116 K/mcL (140-400); Red Blood Count 4.63 M/mcL (4.19-5.50); Red Cell Distribution Width 13.8 % (11.5-14.5); Segmented Neutrophils % 66.5 %; White Blood Count 7.8 K/mcL (4.3-11.1)
[2021-09-21 03:11] LABS: BUN/Creatinine Ratio 16 (6-26); Blood Urea Nitrogen 12 mg/dL (6-20); Calcium 9.2 mg/dL (8.6-10.3); Carbon Dioxide 30 mEq/L (23-29); Chloride 99 mEq/L (98-107); Glucose 269 mg/dL (70-105); Magnesium 1.7 mg/dL (1.6-2.6); Osmolality,Calculated 285 (280-300); Phosphorous 3.1 mg/dL (2.7-4.5); Potassium 4.2 mEq/L (3.5-5.1); Sodium 133 mEq/L (136-145); eGFR For African Americans > 60 (> 60); eGFR For Non-African Americans > 60 (> 60)
[2021-09-21 03:43] LABS: Cholesterol 217 mg/dL (< 200); HDL Cholesterol 24 mg/dL (40-59); Triglycerides 589 mg/dL (< 150)
[2021-09-21 07:36] VITALS: O2SAT 98
[2021-09-21] MEDS: gemfibroziL 600 MG TABLET PO SCH (08:57)
[2021-09-21] MEDS: Isosorbide MONOnitrate (24 HR) 30 MG TAB.ER.24H PO SCH (08:58)
[2021-09-21] MEDS: Insulin LISPRO 300 UNITS/3 ML VIAL SUBQ SCH ×2 (08:58→12:11)
[2021-09-21] MEDS: lisinopriL 20 MG TABLET PO SCH (08:58)
[2021-09-21 11:34] VITALS: BP 159/72; PULSE 66; TEMP 98.1
== END 2021-09-21 16:10 | disposition home or self-care (01) ==
LOC: 2NNU 20:33 → EMEROOARM 20:33 → SUATTDRO 09-20 03:21 → 2NNU 09-20 04:18
PROVIDERS: ADMIT Internal Medicine; ATTEND Internal Medicine